=== PATIENT | male | born 1955 | race Caucasian/White ===

== ENCOUNTER 2023-11-21 08:24 | Inpatient (IN) | payer MEDICARE, OTHER ==
[2023-11-21 09:06] LABS: Basophils % (A) 0 %; Eosinophils # (A) 0.4 k/uL (0-0.7); Eosinophils % (A) 4 %; HCT 32.9 % (39.0-53.0); HGB 10.8 gm/dL (13.0-17.5); Lymphocytes % (A) 10 %; MCH 29.2 pg (25.0-35.0); MCHC 32.7 g/dL (31.0-37.0); MCV 89.3 fL (80.0-100.0); Mean Platelet Volume 8.9; Monocytes # (A) 0.6 k/uL (0-1.0); Monocytes % (A) 7 %; Neutrophils # (A) 7.4 k/uL (1.3-7.7); Neutrophils % (A) 77 %; Platelet Count 436 k/uL (150-450); RBC 3.68 m/uL (4.30-5.90); RDW 13.4 % (11.5-15.5); WBC 9.6 k/uL (3.8-10.6)
[2023-11-21 09:21] LABS: ALT 13 U/L (4-49); AST 25 U/L (17-59); African American GFR (CKD) 61 (>60 ml/min/1.73 sqM); Albumin 3.2 g/dL (3.5-5.0); Alkaline Phosphatase 67 U/L (38-126); Anion Gap 8 mmol/L; Blood Urea Nitrogen 44 mg/dL (9-20); Calcium 8.9 mg/dL (8.4-10.2); Carbon Dioxide 25 mmol/L (22-30); Chloride 107 mmol/L (98-107); Glucose 102 mg/dL (74-99); Non-African American GFR(CKD) 52 (>60 ml/min/1.73 sqM); Sodium 140 mmol/L (137-145); Total Bilirubin 0.4 mg/dL (0.2-1.3); Total Protein 6.4 g/dL (6.3-8.2)
[2023-11-21 09:24] LABS: Amorphous Sediment,Urine Moderate /hpf; Appearance,Urine Cloudy (Clear); Bacteria,Urine Many /hpf; Bilirubin,Urine Negative (Negative); Blood,Urine Large (Negative); Color,Urine Light Red; Glucose,Urine (UA) Negative (Negative); Ketones,Urine Negative (Negative); Leukocyte Esterase,Urine Moderate (Negative); Mucus,Urine Many /hpf; Nitrite,Urine Negative (Negative); Protein,Urine Trace (Negative); RBC,Urine >182 /hpf (0-5); Squamous Epithelial Cell,Urine 22 /hpf (0-4); Urobilinogen,Urine <2.0 mg/dL (<2.0); WBC,Urine >182 /hpf (0-5)
--- NOTE | 2023-11-21 10:12 | ED ---
General Adult HPI - General Chief complaint: Recheck/Abnormal Lab/Rx Stated complaint: transfer,kidney injury Time Seen by Provider: 11/21/23 08:25 Source: patient, EMS, RN notes reviewed, old records reviewed Mode of arrival: EMS Limitations: no limitations - History of Present Illness Initial comments: This is a 68-year-old male who presents to the emergency department from [facility]. Patient was at [facility] since yesterday. Patient's creatinine is 1.93 and they wanted sent him here to get a nephrology consult. They did not obtain a urine and did not do repeat labs after hydration. Patient arrived he had no complaints other than his chronic back pain. Patient denies any significant abdominal pain. Patient denied fever chills or cough or patient had any vomiting. Patient states he has been constipated. They did try to disimpact him at the other facility but stated that he did not still have a very big bowel movement. - Related Data Home Medications Medication Instructions Recorded Confirmed No Known Home Medications 11/21/23 11/21/23 Allergies Allergy/AdvReac Type Severity Reaction Status Date / Time No Known Allergies Allergy Verified 11/21/23 09:58 Review of Systems ROS Statement: Those systems with pertinent positive or pertinent negative responses have been documented in the HPI. ROS Other: All systems not noted in ROS Statement are negative. Past Medical History Additional Past Medical History / Comment(s): MS (LEG WEAKNESS, CANE, FALL RISK) diagnosed in January 2001 and treated with Tecfidera until March 2014. Right foot drop with foot brace CHRONIC BACK PAIN with degenerative scoliosis and spinal stenosis. History of Any Multi-Drug Resistant Organisms: None Reported Additional Past Surgical History / Comment(s): Laminectomy, decompression and fusion of L3-4 and L4-5 06/20/2014. Past Psychological History: No Psychological Hx Reported Smoking Status: Former smoker Past Alcohol Use History: Rare Past Drug Use History: None Reported - Past Family History Mother Family Medical History: AICD/Pacemaker, Mitral Valve Prolapse (MVP) Father Family Medical History: CVA/TIA, Diabetes Mellitus General Exam - General Exam Comments Initial Comments: GENERAL: Patient is well-developed and well-nourished. Patient is nontoxic and well- hydrated and is in no acute distress. ENT: Neck is soft and supple. No significant lymphadenopathy is noted. Oropharynx is clear. Moist mucous membranes. Neck has full range of motion without eliciting any pain. EYES: The sclera were anicteric and conjunctiva were pink and moist. Extraocular movements were intact and pupils were equal round and reactive to light. Eyelids were unremarkable. PULMONARY: Unlabored respirations. Good breath sounds bilaterally. No audible rales rhonchi or wheezing was noted. CARDIOVASCULAR: There is a regular rate and rhythm without any murmurs gallops or rubs. ABDOMEN: Mild suprapubic tenderness SKIN: Skin is clear with no lesions or rashes and otherwise unremarkable. NEUROLOGIC: Patient is alert and oriented x3. Cranial nerves II through XII are grossly intact. Motor and sensory are also intact. Normal speech, volume and content. Symmetrical smile. MUSCULOSKELETAL: Normal extremities with adequate strength and full range of motion. LYMPHATICS: No significant lymphadenopathy is noted PSYCHIATRIC: Normal psychiatric evaluation. Limitations: no limitations Course Vital Signs 11/21/23 08:27 Temperature 98.1 F Pulse Rate 105 H Respiratory 18 Rate Blood Pressure 131/90 O2 Sat by Pulse 94 L Oximetry Medical Decision Making - Medical Decision Making Was pt. sent in by a medical professional or institution (, PA, FAMILY PROGRAM SPECIALIST, urgent care, hospital, or skilled nursing...) When possible be specific @ -Patient was sent to us from [facility] Did you speak to anyone other than the patient for history (EMS, parent, family, police, friend...)? What history was obtained from this source @ -ER physician called prior to transfer and updated on the patient's condition. EMS also gave us the report on the patient's condition and route Did you review nursing and triage notes (agree or disagree)? Why? @ -I reviewed and agree with nursing and triage notes Were old charts reviewed (outside hosp., previous admission, EMS record, old EKG, old radiological studies, urgent care reports/EKG's, skilled nursing records)? Report findings @ -I reviewed the lab work from [facility] showed a creatinine 1.93 I also reviewed the chart and the emergency department and the CAT scans that they sent which showed fecal stasis and no other acute abnormality on the CT Differential Diagnosis (chest pain, altered mental status, abdominal pain women, abdominal pain men, vaginal bleeding, weakness, fever, dyspnea, syncope, headache, dizziness, GI bleed, back pain, seizure, CVA, palpatations, mental health, musculoskeletal)? @ -Not applicable EKG interpreted by me (3pts min.). @ -As above X-rays interpreted by me (1pt min.). @ -None done CT interpreted by me (1pt min.). @ -None done U/S interpreted by me (1pt. min.). @ -None done What testing was considered but not performed or refused? (CT, X-rays, U/S, labs)? Why? @ -None What meds were considered but not given or refused? Why? @ -None Did you discuss the management of the patient with other professionals (professionals i.e. DrErin, PA, FAMILY PROGRAM SPECIALIST, lab, RT, psych nurse, social services analyst, credit administration manager, teacher, first aid officer, caser in)? Give summary @ -I spoke with Dr. Justice and he agreed to admit the patient Was smoking cessation discussed for >3mins.? @ -No Was critical care preformed (if so, how long)? @ -No Were there social determinants of health that impacted care today? How? (Homelessness, low income, unemployed, alcoholism, drug addiction, transportation, low edu. Level, literacy, decrease access to med. care, custodial, rehab)? @ -No Was there de-escalation of care discussed even if they declined (Discuss DNR or withdrawal of care, Hospice)? DNR status @ -No What co-morbidities impacted this encounter? (DM, HTN, Smoking, COPD, CAD, Cancer, CVA, ARF, Chemo, Hep., AIDS, mental health diagnosis, sleep apnea, morbid obesity)? @ -None Was patient admitted / discharged? Hospital course, mention meds given and route, prescriptions, significant lab abnormalities, going to OR and other pertinent info. @ -Patient had repeat lab work here and it showed improved creatinine. Patient also look like he had an infectious Wrist to the patient on Rocephin I gave him 2 g in the emergency department. I also gave him a fluid bolus. Undiagnosed new problem with uncertain prognosis? @ -No Drug Therapy requiring intensive monitoring for toxicity (Heparin, Nitro, Insulin, Cardizem)? @ -No Were any procedures done? @ -No Diagnosis/symptom? @ -Renal insufficiency Acute, or Chronic, or Acute on Chronic? @ -Acute Uncomplicated (without systemic symptoms) or Complicated (systemic symptoms)? @ -Complicated Side effects of treatment? @ -No Exacerbation, Progression, or Severe Exacerbation? @ -No Poses a threat to life or bodily function? How? (Chest pain, [place], [place], pneumonia, PE, COPD, DKA, ARF, appy, cholecystitis, CVA, Diverticulitis, Homicidal, Suicidal, threat to staff... and all critical care pts) @ -No Diagnosis/symptom? @ -Urinary tract infection Acute, or Chronic, or Acute on Chronic? @ -Acute Uncomplicated (without systemic symptoms) or Complicated (systemic symptoms)? @ -Complicated Side effects of treatment? @ -None Exacerbation, Progression, or Severe Exacerbation] @ -No Poses a threat to life or bodily function? @ -Yes this can lead to sepsis and endorgan dysfunction Diagnosis/symptom? @ -Dehydration Acute, or Chronic, or Acute on Chronic? @ -Acute Uncomplicated (without systemic symptoms) or Complicated (systemic symptoms)? @ -Complicated Side effects of treatment? @ -None Exacerbation, Progression, or Severe Exacerbation] @ -No Poses a threat to life or bodily function? @ -No - Lab Data Result diagrams: 11/21/23 08:55 11/21/23 08:55 Lab Results 11/21/23 11/21/23 11/21/23 Range/Units 08:55 08:55 08:55 WBC 9.6 (3.8-10.6) k/uL RBC 3.68 L (4.30-5.90) m/uL Hgb 10.8 L (13.0-17.5) gm/dL Hct 32.9 L (39.0-53.0) % MCV 89.3 (80.0-100.0) fL MCH 29.2 (25.0-35.0) pg MCHC 32.7 (31.0-37.0) g/dL RDW 13.4 (11.5-15.5) % Plt Count 436 (150-450) k/uL MPV 8.9 Neutrophils % 77 % Lymphocytes % 10 % Monocytes % 7 % Eosinophils % 4 % Basophils % 0 % Neutrophils # 7.4 (1.3-7.7) k/uL Lymphocytes # 1.0 (1.0-4.8) k/uL Monocytes # 0.6 (0-1.0) k/uL Eosinophils # 0.4 (0-0.7) k/uL Basophils # 0.0 (0-0.2) k/uL Sodium 140 (137-145) mmol/L Potassium 4.0 (3.5-5.1) mmol/L Chloride 107 (98-107) mmol/L Carbon Dioxide 25 (22-30) mmol/L Anion Gap 8 mmol/L BUN 44 H (9-20) mg/dL Creatinine 1.36 H (0.66-1.25) mg/dL Est GFR (CKD-EPI)AfAm 61 (>60 ml/min/1.73 sqM) Est GFR (CKD-EPI)NonAf 52 (>60 ml/min/1.73 sqM) Glucose 102 H (74-99) mg/dL Calcium 8.9 (8.4-10.2) mg/dL Total Bilirubin 0.4 (0.2-1.3) mg/dL AST 25 (17-59) U/L ALT 13 (4-49) U/L Alkaline Phosphatase 67 (38-126) U/L Total Protein 6.4 (6.3-8.2) g/dL Albumin 3.2 L (3.5-5.0) g/dL Urine Color Light Red Urine Appearance Cloudy (Clear) Urine pH 5.0 (5.0-8.0) Ur Specific [place]ol[place] 1.010 (1.001-1.035) Urine Protein Trace H (Negative) Urine Glucose (UA) Negative (Negative) Urine Ketones Negative (Negative) Urine Blood Large H (Negative) Urine Nitrite Negative (Negative) Urine Bilirubin Negative (Negative) Urine Urobilinogen <2.0 (<2.0) mg/dL Ur Leukocyte Esterase Moderate H (Negative) Urine RBC >182 H (0-5) /hpf Urine WBC >182 H (0-5) /hpf Ur Squamous Epith Cells 22 H (0-4) /hpf Amorphous Sediment Moderate H (None) /hpf Urine Bacteria Many H (None) /hpf Urine Mucus Many H (None) /hpf Disposition Clinical Impression: Urinary tract infection, Dehydration, Renal insufficiency Disposition: ADMITTED IP TO THIS HOSP Referrals: Kang Santacruz MD [Primary Care Provider] - 1-2 days Time of Disposition: 10:11
[2023-11-21] MEDS: cefTRIAXone IN SWFI 1,000 MG/10 ML SYRINGE IVP STA (10:23)
[2023-11-21] MEDS: SODIUM CHLORIDE 0.9% 1,000 ML IV ONE ×2 (10:23→12:44)
--- NOTE | 2023-11-21 11:27 | XR ---
EXAMINATION TYPE: XR KUB DATE OF EXAM: 11/21/2023 COMPARISON: 11/20/2019 HISTORY: Abdominal TECHNIQUE: One view abdominal series FINDINGS: Diffuse osteopenia with severe arthropathy of the left postsurgical changes lower lumbar spine. Scoli osis and multilevel degenerative disc disease. Solidly elevated diaphragm. Dilated bowel loops in the abdomen. Contrast within the bladder. Suspect the catheter represents a Odell catheter versus rectal catheter. IMPRESSION: 1. Dilated bowel loops. Could be on the basis of ileus or partial distal colonic obstruction. Correla te for fecal impaction.
[2023-11-21] MEDS ORDERED: LACTULOSE 20 GM/30 ML CUP PO PRN (12:20)
[2023-11-21] MEDS ORDERED: NALOXONE 0.4 MG/ML 1 ML VIAL IV PRN (12:20)
[2023-11-21] MEDS ORDERED: MELATONIN 3 MG TABLET PO PRN (12:20)
[2023-11-21] MEDS ORDERED: ONDANSETRON 4 MG/2 ML VIAL IVP PRN (12:20)
[2023-11-21] MEDS ORDERED: CALCIUM CARBONATE 500 MG CHEWABLE PO PRN (12:20)
--- NOTE | 2023-11-21 12:21 | P.HPIM ---
History of Present Illness H&P Date: 11/21/23 Chief Complaint: Abnormal creatinine This is a 68-year-old patient, follows with Livier Villa NP.. Chronic stable medical conditions include MS causing leg weakness. Diagnosed in 2000. And treated withTecfidera until March 2014. Right foot drop with foot brace. Chronic low back pain with spinal stenosis. Has had Pretty previous lumbar laminectomy and decompression. Patient presented to the ER here from [facility]. Patient was [facility] where he was treated for initially a fall from standing and he fell sideways on the right hip. No fracture. He was also found to have a UTI was given ceftriaxone. During workup was found to have a creatinine of 1.91. CT scan showed a distended bladder. Odell catheter was placed. Found of significant fecal retention. Patient had declined enema. Also found to have enlarged prostate. Patient does complain of decreased urine flow. He tries to use a wheelchair most of the times. Appetite is good. No fever no chills. Normally has 2-3 bowel movements a week. Patient was sent down here for further workup by nephrology. Denies any urinary symptoms. Review of systems: GEN.: Tired EYES: None HEENT: None NECK: None RESPIRATORY: None CARDIOVASCULAR: None GASTROINTESTINAL: None GENITOURINARY: As above MUSCULOSKELETAL: As above LYMPHATICS: None HEMATOLOGICAL: None PSYCHIATRY: None NEUROLOGICAL: [Does use the help of a wheelchair e Social history: Lives alone. Was a smoker 2 packs/week and stopped in April 2011. Denies alcohol. Used to work in office setting. Physical examination: VITAL SIGNS: 98.1, 105, 18, 131/90, 94% room air GENERAL: BMI 26.5, reclining in bed not in distress. EYES: Pupils equal. Conjunctiva leslie l. HEENT: External appearance of nose and ears normal, oral cavity grossly normal. NECK: JVD not raised; masses not palpable. HEART: First and second heart sounds are normal; no edema. LUNGS: Respiratory rate normal; clear to auscultation. ABDOMEN: Soft, nontender, liver spleen not palpable, no masses palpable. Odell catheter PSYCH: Alert and oriented x3; mood and affect leslie l. MUSCULOSKELETAL:No Clubbing/cyanosis;muscles-grossly intact. Right foot brace- dropfoot NEUROLOGICAL: Cranial nerves grossly intact; no facial asymmetry, power and sensation grossly intact. LYMPHATICS: No lymph nodes palpable in the axilla and neck INVESTIGATIONS, reviewed in the clinical context: November 21, 2023: White count 9.6 hemoglobin 10.8 platelets 436 potassium 4 BUN 44 creatinine 1.36 UA: Trace protein large blood moderate leukoesterase WBC more than 182 squamous epithelial cells 22 KUB: Dilated bowel loops. Probable fecal impaction Assessment plan: -Severe obstipation from fecal retention. Causing some bowel distention. Patient normally goes to has a bowel movement 2-3 times a week. That explains some of his abdominal discomfort. Mag citrate and soapsuds enema ordered. Consult surgery. -Acute kidney injury, likely obstructive from distended bladder likely from component of prostatomegaly and fecal retention. Odell catheter was placed at the other hospital. Creatinine has come down to from 1.9-1.3 Rule out chronic component. Renal ultrasound -Multiple sclerosis. Patient has chronic leg weakness. Has diagnosed in January 2001. Treated withTecfidera until March 2014. Right foot with brace. -Chronic lower back pain/lumbar region. Has had prior decompression laminectomy. -BPH, as seen on CT scan also patient has BPH symptoms. Start Flomax 0.4 mg nightly. DC trial Odell tomorrow after patient is also had bowel movement. Care was discussed with the patient. Questions answered Past Medical History Additional Past Medical History / Comment(s): MS (LEG WEAKNESS, CANE, FALL RISK) diagnosed in January 2001 and treated with Tecfidera until March 2014. Right foot drop with foot brace CHRONIC BACK PAIN with degenerative scoliosis and spinal stenosis. History of Any Multi-Drug Resistant Organisms: None Reported Additional Past Surgical History / Comment(s): Laminectomy, decompression and fusion of L3-4 and L4-5 06/20/2014. Past Psychological History: No Psychological Hx Reported Smoking Status: Former smoker Past Alcohol Use History: Rare Past Drug Use History: None Reported - Past Family History Mother Family Medical History: AICD/Pacemaker, Mitral Valve Prolapse (MVP) Father Family Medical History: CVA/TIA, Diabetes Mellitus Medications and Allergies Home Medications Medication Instructions Recorded Confirmed Type No Known Home Medications 11/21/23 11/21/23 History Allergies Allergy/AdvReac Type Severity Reaction Status Date / Time No Known Allergies Allergy Verified 11/21/23 09:58 Physical Exam Vitals: Vital Signs Temp Pulse Resp BP Pulse Ox 11/21/23 10:31 80 16 122/86 93 L 11/21/23 08:27 98.1 F 105 H 18 131/90 94 L Intake and Output 11/20/23 11/21/23 11/21/23 22:59 06:59 14:59 Output Total 250 Balance -250 Output: Urine 250 Other: Voiding Method Indwelling Catheter Weight 86.183 kg Results CBC & Chem 7: 11/21/23 08:55 11/21/23 08:55 Labs: Abnormal Lab Results - Last 24 Hours (Table) 11/21/23 11/21/23 11/21/23 Range/Units 08:55 08:55 08:55 RBC 3.68 L (4.30-5.90) m/uL Hgb 10.8 L (13.0-17.5) gm/dL Hct 32.9 L (39.0-53.0) % BUN 44 H (9-20) mg/dL Creatinine 1.36 H (0.66-1.25) mg/dL Glucose 102 H (74-99) mg/dL Albumin 3.2 L (3.5-5.0) g/dL Urine Protein Trace H (Negative) Urine Blood Large H (Negative) Ur Leukocyte Esterase Moderate H (Negative) Urine RBC >182 H (0-5) /hpf Urine WBC >182 H (0-5) /hpf Ur Squamous Epith Cells 22 H (0-4) /hpf Amorphous Sediment Moderate H (None) /hpf Urine Bacteria Many H (None) /hpf Urine Mucus Many H (None) /hpf
[2023-11-21] MEDS: ENOXAPARIN 40 MG/0.4 ML SYRINGE SQ SCH (12:45)
--- NOTE | 2023-11-21 15:32 | P.GSCN ---
History of Present Illness Consult date: 11/21/23 History of present illness: CHIEF COMPLAINT: Acute kidney injury HISTORY OF PRESENT ILLNESS: This is a 68-year-old male who is a transfer from [facility]. Apparently had an elevated creatinine of 1.93 and was sent here to be evaluated by nephrology. Patient also has a ported issues with constipation. He did not have a bowel movement for 3 to 4 days. He was reporting minimal flatus. Denies any nausea or vomiting. Complains of soreness across the lower abdomen. Denies any prior history of constipation. Denies being on any pain medication. He does have a history of MS and limited mobility. Last colonoscopy was several years ago and he reports it is negative. KUB x-ray reported dilated bowel loops. Could be on the basis of ileus or partial distal colonic obstruction. Correlate for fecal impaction. Medicine service has ordered a soapsuds enema and citrate of mag. Patient reports that he thinks he is now having bowel movements. Patient denies any prior abdominal surgeries. PAST MEDICAL HISTORY: See list. PAST SURGICAL HISTORY: See list. MEDICATIONS: See list. ALLERGIES: See list. SOCIAL HISTORY: No illicit drug use. REVIEW OF SYSTEMS: CONSTITUTIONAL: Denies fever or chills. HEENT: Denies blurred vision, vision changes, or eye pain. Denies hemoptysis ENDOCRINE: Denies heat or cold intolerance. CARDIOVASCULAR: Denies chest pain or pressure. RESPIRATORY: No shortness of breath. GASTROINTESTINAL: Please refer to HPI otherwise unremarkable NEURO: Denies history of seizures. PSYCH: No depression or suicidal ideation HEMATOLOGIC: Denies bleeding disorders. LYMPHATIC: The patient denies any lumps and bumps around the neck. GENITOURINARY: Denies any blood in urine or increased urinary frequency. MUSCULOSKELETAL: Denies myalgias. Denies joint swelling. Denies decreased range of motion beyond patients baseline. SKIN: Denies pruitis. Denies rash. PHYSICAL EXAM: VITAL SIGNS: Reviewed GENERAL: Well-developed in no acute distress. HEENT: No sclera icterus. Extraocular movements grossly intact. Moist buccal mucosa. Head is atraumatic, normocephalic. Hears conversational speech. No nasal drainage. NECK: Supple without lymphadenopathy. CHEST: Non-labored respirations and equal bilateral excursions. CARDIOVASCULAR: Palpable 2+ radial pulses. ABDOMEN: Soft. Mildly distended. Mild tenderness with palpation lower abdomen MUSCULOSKELETAL: No clubbing or cyanosis. NEUROLOGIC: No focal or lateralizing signs. Cranial nerves II through XII grossly intact. PSYCH: Appropriate affect. Alert and oriented to person, place and time. SKIN: Well perfused. Good skin turgor. LABORATORY DATA: WBC 9.6 Hgb 10.8 platelets 436 Sodium is 140 potassium 4.0 creatinine 1.36 Lactic acid 1.1 IMAGING: KUB x-ray dilated bowel loops. Could be on the basis of ileus or partial distal colonic obstruction. Correlate for fecal impaction. ASSESSMENT: 1. Constipation 2. Possible ileus 3. Acute kidney injury 4. History of MS and limited mobility PLAN: -Agree with soapsuds enema and citrate of mag -Continue to monitor -Downgrade diet to full liquids until patient having bowel movements -Continue IV fluids Physician Registered Respiratory Therapist note has been reviewed by physician. Signing provider agrees with the documented findings, assessment, and plan of care. Please see additional documentation below. CHIEF COMPLAINT: Chronic constipation HISTORY OF PRESENT ILLNESS: The patient is a 68-year-old male with multiple sclerosis, degenerative spine disease who was transferred from outside facility for acute kidney injury. Patient had outside CT film demonstrates fecal impaction. Since transferred to this hospital, patient is documented to have multiple bowel movements. He denies any abdominal pain at the time of my assessment. General surgery is consulted for chronic constipation. Patient reports personal history of usual daily bowel movements which has changed in the last week. PAST MEDICAL HISTORY: See list and reviewed PAST SURGICAL HISTORY: See list and reviewed MEDICATIONS: See list and reviewed ALLERGIES: See list and reviewed SOCIAL HISTORY: See list and reviewed FAMILY HISTORY: See list and reviewed REVIEW OF ORGAN SYSTEMS: CONSTITUTIONAL: No fevers or chills. No recent weight loss. EYES: Denies any trouble with vision. No glasses. HEENT: No difficulties with hearing. No nosebleeds. No difficulty swallowing. RESPIRATORY: Denies pneumonia. Denies any troubles with breathing or dyspnea on exertion. CARDIOVASCULAR: Denies any chest pain, palpitations, or recent heart attacks. GASTROINTESTINAL: Denies fatty food intolerance. Denies change in bowel habits and gas bloat. GENITOURINARY: New acute kidney injury. NEUROLOGICAL: Has multiple sclerosis with right foot drop. MUSCULOSKELETAL: Has spinal stenosis. SKIN: No current skin cancer. No rash. PSYCHIATRIC: Denies current depression or suicidal thoughts. ENDOCRINE: Denies current thyroid disorders. Denies any blood sugar glucose intolerance. HEME/LYMPHATIC: Denies any lumps and bumps around the neck. No recent deep venous thrombosis. ALLERGY/IMMUNOLOGY: No immunoglobulin therapy. No immune deficiencies. BREAST: Denies current breast lumps, pain or nipple discharge. PHYSICAL EXAM: VITALS: Reviewed CONSTITUTIONAL: Well developed and in no acute distress. EYES: Conjuctivae without sclera icterus. Extraocular movements grossly intact. HEAD, EARS, NOSE, THROAT: Moist buccal mucosa. Head is atraumatic, normocephalic. Hears conversational speech. No nasal drainage. NECK: Supple. No JV distention. No thyroidomegaly. RESPIRATORY: Non-labored respirations and equal bilateral excursions. No gross wheezes. CARDIOVASCULAR: Palpable 2+ radial pulses. ABDOMEN: No peritonitis. No moderate distention. LYMPH: No neck lymphadenopathy. MUSCULOSKELETAL: No clubbing cyanosis or edema SKIN: Warm and well perfused with good skin turgor. NEUROLOGIC: Cranial nerves II through XII grossly intact. No focal or lateralizing signs. PSYCH: Appropriate affect. Alert and oriented to person, place and time. Displays appropriate insight. CLINCAL LABS: Reviewed. Hemoglobin 10.8, anemia. Creatinine elevated 1.36. IMAGING: Independently reviewed. Outside CT of the abdomen pelvis independently reviewed demonstrates localized fecal bolus of the rectum. This is my independent interpretation. Abdominal x-ray 11/21/2023 demonstrates no residual stool. No bowel obstruction. This is my independent interpretation. RADIOLOGY: Report reviewed abdominal x-ray partial dilated small bowel. ASSESSMENT: 1. Fecal impaction per outside CT scan 2. Anemia 3. Acute kidney injury 4. Multiple sclerosis PLAN: 1. Recommend bowel regimen to include lactulose and milk of magnesia 2. No acute surgical invention at this time ADVANCE DIRECTIVE: CODE STATUS in chart Thank you for this kind consultation. Past Medical History Additional Past Medical History / Comment(s): MS (LEG WEAKNESS, CANE, FALL RISK) diagnosed in January 2001 and treated with Tecfidera until March 2014. Right foot drop with foot brace CHRONIC BACK PAIN with degenerative scoliosis and spinal stenosis. History of Any Multi-Drug Resistant Organisms: None Reported Additional Past Surgical History / Comment(s): Laminectomy, decompression and fusion of L3-4 and L4-5 06/20/2014. Past Psychological History: No Psychological Hx Reported Smoking Status: Former smoker Past Alcohol Use History: Rare Past Drug Use History: None Reported - Past Family History Mother Family Medical History: AICD/Pacemaker, Mitral Valve Prolapse (MVP) Father Family Medical History: CVA/TIA, Diabetes Mellitus Medications and Allergies Home Medications Medication Instructions Recorded Confirmed Type No Known Home Medications 11/21/23 11/21/23 History Allergies Allergy/AdvReac Type Severity Reaction Status Date / Time No Known Allergies Allergy Verified 11/21/23 09:58 Surgical - Exam Vital Signs Temp Pulse Resp BP Pulse Ox 98.1 F 105 H 18 131/90 94 L 11/21/23 08:27 11/21/23 08:27 11/21/23 08:27 11/21/23 08:27 11/21/23 08:27 Results - Labs 11/21/23 08:55 11/22/23 05:48 Abnormal Lab Results - Last 24 Hours (Table) 11/21/23 11/21/23 11/21/23 Range/Units 08:55 08:55 08:55 RBC 3.68 L (4.30-5.90) m/uL Hgb 10.8 L (13.0-17.5) gm/dL Hct 32.9 L (39.0-53.0) % BUN 44 H (9-20) mg/dL Creatinine 1.36 H (0.66-1.25) mg/dL Glucose 102 H (74-99) mg/dL Albumin 3.2 L (3.5-5.0) g/dL Urine Protein Trace H (Negative) Urine Blood Large H (Negative) Ur Leukocyte Esterase Moderate H (Negative) Urine RBC >182 H (0-5) /hpf Urine WBC >182 H (0-5) /hpf Ur Squamous Epith Cells 22 H (0-4) /hpf Amorphous Sediment Moderate H (None) /hpf Urine Bacteria Many H (None) /hpf Urine Mucus Many H (None) /hpf Diabetes panel 11/21/23 Range/Units 08:55 Sodium 140 (137-145) mmol/L Potassium 4.0 (3.5-5.1) mmol/L Chloride 107 (98-107) mmol/L Carbon Dioxide 25 (22-30) mmol/L BUN 44 H (9-20) mg/dL Creatinine 1.36 H (0.66-1.25) mg/dL Glucose 102 H (74-99) mg/dL Calcium 8.9 (8.4-10.2) mg/dL AST 25 (17-59) U/L ALT 13 (4-49) U/L Alkaline Phosphatase 67 (38-126) U/L Total Protein 6.4 (6.3-8.2) g/dL Albumin 3.2 L (3.5-5.0) g/dL Calcium panel 11/21/23 Range/Units 08:55 Calcium 8.9 (8.4-10.2) mg/dL Albumin 3.2 L (3.5-5.0) g/dL Pituitary panel 11/21/23 Range/Units 08:55 Sodium 140 (137-145) mmol/L Potassium 4.0 (3.5-5.1) mmol/L Chloride 107 (98-107) mmol/L Carbon Dioxide 25 (22-30) mmol/L BUN 44 H (9-20) mg/dL Creatinine 1.36 H (0.66-1.25) mg/dL Glucose 102 H (74-99) mg/dL Calcium 8.9 (8.4-10.2) mg/dL Adrenal panel 11/21/23 Range/Units 08:55 Sodium 140 (137-145) mmol/L Potassium 4.0 (3.5-5.1) mmol/L Chloride 107 (98-107) mmol/L Carbon Dioxide 25 (22-30) mmol/L BUN 44 H (9-20) mg/dL Creatinine 1.36 H (0.66-1.25) mg/dL Glucose 102 H (74-99) mg/dL Calcium 8.9 (8.4-10.2) mg/dL Total Bilirubin 0.4 (0.2-1.3) mg/dL AST 25 (17-59) U/L ALT 13 (4-49) U/L Alkaline Phosphatase 67 (38-126) U/L Total Protein 6.4 (6.3-8.2) g/dL Albumin 3.2 L (3.5-5.0) g/dL
--- NOTE | 2023-11-21 15:41 | XR ---
EXAM TYPE: LUMBAR SPINE X RAY SERIES COMPARISON: 06/20/2014 HISTORY: Pain TECHNIQUE: 3 views are submitted. FINDINGS: The curvature of the spine with severe multilevel degenerative disc disease and diffuse osteopenia. T here is a deformity involving the right 10th rib likely the basis remote trauma. Postsurgical change levels L3-L5 similar in appearance. Orthopedic screw at L3 is somewhat along the course of the disc space for upper vertebral segment. This is unchanged. Severe left hip arthropathy and areas of sclerosis involving the left pelvic bone. Catheter overlying the pelvis likely related t o Odell catheter or rectal tube. IMPRESSION: 1. Postoperative change with multilevel additional severe degenerative disc disease extending from le vels T12-L3. 2. Severe left hip arthropathy. There is areas of sclerosis involving the left pelvic bone partially included in the [id number] and indeterminate etiology.
[2023-11-21] MEDS: MAGNESIUM CITRATE 296 ML BOTTLE PO ONE (16:19)
--- NOTE | 2023-11-21 16:39 | US ---
EXAMINATION TYPE: US kidneys/renal and bladder DATE OF EXAM: 11/21/2023 COMPARISON: 11/20/2023 CLINICAL INDICATION: Male, 68 years old with history of Evaluate for CKD; Abnormal labs. Bladder fol ey. Macroscopic hematuria. EXAM MEASUREMENTS: Right Kidney: 10.4 x 4.4 x 5.1 cm Left Kidney: 9.3 x 4.8 x 5.5 cm Right Kidney: Medial inferior cortical anechoic lesion - 1.2 x 1.4 x 0.9 cm Left Kidney: Limited evaluation due to patient position Bladder: Distended. Richmond seen. Area seen in left bladder, tissue vs clot vs other etiology = 5.1 x 4.0 x 2.3 cm Bilateral Jets not seen due to richmond There is no evidence for hydronephrosis at this point in time. No nephrolithiasis is seen. No ana s are identified. The urinary bladder is anechoic. Bilateral ureteral jets are seen. IMPRESSION: 1. Richmond catheter in place with irregular shaped tissue extending from the bladder base. Unclear if this is blood products or irregular pedunculated mass. Correlate with urinalysis. Consider cystoscopy for complete evaluation.. 2. Right renal simple appearing cyst.
[2023-11-21] MEDS: TAMSULOSIN 0.4 MG CAP.ER.24H PO SCH (17:40)
[2023-11-22 06:38] LABS: African American GFR (CKD) >90 (>60 ml/min/1.73 sqM); Anion Gap 10 mmol/L; Blood Urea Nitrogen 24 mg/dL (9-20); Calcium 8.7 mg/dL (8.4-10.2); Carbon Dioxide 23 mmol/L (22-30); Chloride 110 mmol/L (98-107); Glucose 94 mg/dL (74-99); Non-African American GFR(CKD) 79 (>60 ml/min/1.73 sqM); Potassium 3.8 mmol/L (3.5-5.1); Sodium 143 mmol/L (137-145)
--- NOTE | 2023-11-22 09:46 | P.CNOR ---
History of Present Illness - [facility] Consult date: 11/22/23 Requesting physician: Cirilo Justice Consult reason: low back pain History of present illness: History of Presenting Illness Patient is a Pleasant 68-year-old male who Was transferred to our ER from [facility]. Patient was being treated at [facility] for a fall from standing. He states he lost his balance and fell sideways onto his right hip. No fractures were demonstrated. Patient did have a medical workup and was found to have a UTI and significant fecal retention. Patient was transferred to our facility for a nephrology consult. Patient does have complaint of chronic back pain, our services have been consulted for evaluation. Patient does have a previous orthopedic history of a [id number] and fusion. Patient is unable to remember where or who performed his procedure. He states that he lives alone in a single-wide trailer. He states he normally uses a wheelchair for his mobility. Patient denies any perineal numbness or tingling and incontinence of bowel or bladder. Patient is currently denying any treatment for his low back. He states that this is something that he has been dealing with and does not feel he needs treatment at this time. He declines any consult to pain management. Patient do es agree to follow up outpatient as needed with our service. Review of Systems Pertinent positives and negatives as discussed in HPI, a complete review of systems was performed and all other systems are negative. Physical Examination Physical exam was denied by patient. Patient denied needing any treatment for his lumbar spine. Assessment and Plan X-ray of the lumbar spine taken on 11/21/2023 demonstrates postoperative change with multilevel additional severe degenerative disc disease and diffuse osteopenia extending from the level T12-L3. Severe left hip arthropathy. There is areas of sclerosis involving the left pelvic bone. Degenerative scoliosis Lumbar spondylosis Previous L3-S1 decompression and fusion Diffuse Osteopenia Left hip Arthropathy At this time we do not recommend any emergent/urgent orthopedic surgical intervention. Patient may follow-up with Dr. Merino office for further evaluation as needed. Orthopedics is signing off at this time. Please do not hesitate to contact us for any further questions. 2. Appreciate medical management 3. Pain management - Continue with conservative treatment, such as anti- inflammatory, ice and heat therapy, and Tylenol. 4. PT/OT - Recommend daily PT OT, patient may benefit from subacute rehab. 5. Appreciate consult I reviewed and discussed this case with my attending Dr. Merino, whom has reviewed this chart and films and is in agreement with assessment and plan of care as outlined above. I have personally seen and examined the patient, performed the documentation and the assessment and plan as written. Number of minutes spent on the visit: 20m. Past Medical History Additional Past Medical History / Comment(s): MS (LEG WEAKNESS, CANE, FALL RISK) diagnosed in January 2001 and treated with Tecfidera until March 2014. Right foot drop with foot brace CHRONIC BACK PAIN with degenerative scoliosis and spinal stenosis. History of Any Multi-Drug Resistant Organisms: None Reported Additional Past Surgical History / Comment(s): Laminectomy, decompression and fusion of L3-4 and L4-5 06/20/2014. Past Psychological History: No Psychological Hx Reported Smoking Status: Former smoker Past Alcohol Use History: Rare Past Drug Use History: None Reported - Past Family History Mother Family Medical History: AICD/Pacemaker, Mitral Valve Prolapse (MVP) Father Family Medical History: CVA/TIA, Diabetes Mellitus Medications and Allergies Home Medications Medication Instructions Recorded Confirmed Type No Known Home Medications 11/21/23 11/21/23 History Allergies Allergy/AdvReac Type Severity Reaction Status Date / Time No Known Allergies Allergy Verified 11/21/23 09:58 Results - Labs Labs: Abnormal Lab Results - Last 24 Hours (Table) 11/21/23 11/21/23 11/21/23 Range/Units 08:55 08:55 08:55 RBC 3.68 L (4.30-5.90) m/uL Hgb 10.8 L (13.0-17.5) gm/dL Hct 32.9 L (39.0-53.0) % Chloride (98-107) mmol/L BUN 44 H (9-20) mg/dL Creatinine 1.36 H (0.66-1.25) mg/dL Glucose 102 H (74-99) mg/dL Albumin 3.2 L (3.5-5.0) g/dL Urine Protein Trace H (Negative) Urine Blood Large H (Negative) Ur Leukocyte Esterase Moderate H (Negative) Urine RBC >182 H (0-5) /hpf Urine WBC >182 H (0-5) /hpf Ur Squamous Epith Cells 22 H (0-4) /hpf Amorphous Sediment Moderate H (None) /hpf Urine Bacteria Many H (None) /hpf Urine Mucus Many H (None) /hpf 11/22/23 Range/Units 05:48 RBC (4.30-5.90) m/uL Hgb (13.0-17.5) gm/dL Hct (39.0-53.0) % Chloride 110 H (98-107) mmol/L BUN 24 H (9-20) mg/dL Creatinine (0.66-1.25) mg/dL Glucose (74-99) mg/dL Albumin (3.5-5.0) g/dL Urine Protein (Negative) Urine Blood (Negative) Ur Leukocyte Esterase (Negative) Urine RBC (0-5) /hpf Urine WBC (0-5) /hpf Ur Squamous Epith Cells (0-4) /hpf Amorphous Sediment (None) /hpf Urine Bacteria (None) /hpf Urine Mucus (None) /hpf H & H 11/21/23 Range/Units 08:55 Hgb 10.8 L (13.0-17.5) gm/dL Hct 32.9 L (39.0-53.0) % Result Diagrams: 11/21/23 08:55 11/22/23 05:48
--- NOTE | 2023-11-22 10:15 | P.NPCON ---
History of Present Illness - Reason for Consult acute renal failure - History of Present Illness Reason for consultation: Acute kidney injury History of present illness: Patient is a 68-year-old male seen in renal consultation for acute kidney injury. Patient initially presented to [facility] due to fall. Patient states he fell near his bed and the next thing he knew he was down on the ground. He was brought to the hospital by the ambulance. Patient also admits to constipation and is being followed by surgery. He is currently on a full liquid diet and is tolerating it well. Creatinine upon admission at [facility] was 1.9 and is down to 0.97 today. He is currently receiving IV fluids. He denies nausea or vomiting. Hemodynamically stable. No fever or chills. Denies regular use of nonsteroidals. No history of diabetes. Denies history of coronary artery disease. Denies family history of renal disease. Vital signs are stable. General: No acute distress. HEENT: Head exam is unremarkable. LUNGS: No audible rhonchi or wheezes. HEART: Rate and Rhythm are regular. ABDOMEN: Mild generalized tenderness. EXTREMITITES: No edema. Past Medical History Additional Past Medical History / Comment(s): MS (LEG WEAKNESS, CANE, FALL RISK) diagnosed in January 2001 and treated with Tecfidera until March 2014. Right foot drop with foot brace CHRONIC BACK PAIN with degenerative scoliosis and spinal stenosis. History of Any Multi-Drug Resistant Organisms: None Reported Additional Past Surgical History / Comment(s): Laminectomy, decompression and fusion of L3-4 and L4-5 06/20/2014. Past Psychological History: No Psychological Hx Reported Smoking Status: Former smoker Past Alcohol Use History: Rare Past Drug Use History: None Reported - Past Family History Mother Family Medical History: AICD/Pacemaker, Mitral Valve Prolapse (MVP) Father Family Medical History: CVA/TIA, Diabetes Mellitus Medications and Allergies Home Medications Medication Instructions Recorded Confirmed Type No Known Home Medications 11/21/23 11/21/23 History Allergies Allergy/AdvReac Type Severity Reaction Status Date / Time No Known Allergies Allergy Verified 11/21/23 09:58 Physical Exam Vitals: Vital Signs Temp Pulse Pulse Resp BP BP Pulse Ox 11/22/23 08:00 97.9 F 97 20 143/78 94 L 11/22/23 02:00 98.5 F 99 20 128/74 92 L 11/21/23 21:26 22 11/21/23 19:51 97.9 F 90 20 132/73 90 L 11/21/23 15:48 97.4 F L 100 20 112/64 90 L 11/21/23 13:46 97.8 F 64 18 111/53 94 L 11/21/23 12:09 97.6 F 80 18 141/98 92 L 11/21/23 10:31 80 16 122/86 93 L Intake and Output 11/21/23 11/22/23 11/22/23 22:59 06:59 14:59 Output Total 900 200 Balance -900 -200 Output: Urine 900 200 Other: Voiding Method Indwelling Catheter # Bowel Movements 1 2 Results - Lab Results Most recent lab results Calcium 8.7 mg/dL (8.4-10.2) 11/22/23 05:48 11/21/23 08:55 11/22/23 05:48 Assessment and Plan Plan: Assessment: 1. Acute kidney injury secondary to vasomotor nephropathy from hypovolemia. Creatinine 1.9 upon initial presentation in [facility] and down to 0.97 today. UA with trace protein and suggestive of UTI. No hydronephrosis noted on kidney ultrasound. 2. Bladder mass noted on kidney ultrasound. Consider urology eval. 3. Constipation and possible ileus being followed by surgery. On for liquid diet. 4. History of MS. Plan: Maintain IV fluids. Encouraged oral intake. Avoid nephrotoxins. Continue to monitor renal function and urine output. Thank you for the consultation. I will continue to follow the patient with you during his hospital stay.
--- NOTE | 2023-11-22 12:39 | P.GSCN ---
History of Present Illness Consult date: 11/22/23 Reason for Consult: Urinary retention, possible bladder mass Requesting physician: Arie Machado History of present illness: The patient is a 68-year-old male who presented to [facility] yesterday with lower abdominal pain. He is a vague historian. He was diagnosed with a UTI. He reported constipation and was disimpacted. He left the hospital but returned with persistent symptoms. On that second visit, a CT scan of the abdomen and pelvis was obtained. This showed bilateral renal atrophy with symmetrical contrast excretion, bilateral renal lesions presumed to be cysts, and an enlarged prostate that extended intravesically. Apparently the bladder was distended despite a Odell catheter being in place, and the catheter was irrigated. Over 500 cc was drained and the patient's lower abdominal discomfort resolved. The patient was diagnosed with MS in 2000. He has chronic low back pain with spinal stenosis. He is a vague historian. He denies any prior history of urolithiasis, but is unsure whether or not he has ever been treated for a UTI. He states that he has never been told he had an enlarged prostate. He reports occasional fecal incontinence but is unable to state whether he experiences urinary incontinence. Review of Systems ROS unobtainable: due to mental status Past Medical History Additional Past Medical History / Comment(s): MS (LEG WEAKNESS, CANE, FALL RISK) diagnosed in January 2001 and treated with Tecfidera until March 2014. Right foot drop with foot brace CHRONIC BACK PAIN with degenerative scoliosis and spinal stenosis. History of Any Multi-Drug Resistant Organisms: None Reported Additional Past Surgical History / Comment(s): Laminectomy, decompression and fusion of L3-4 and L4-5 06/20/2014. Past Psychological History: No Psychological Hx Reported Smoking Status: Former smoker Past Alcohol Use History: Rare Past Drug Use History: None Reported - Past Family History Mother Family Medical History: AICD/Pacemaker, Mitral Valve Prolapse (MVP) Father Family Medical History: CVA/TIA, Diabetes Mellitus Medications and Allergies Home Medications Medication Instructions Recorded Confirmed Type No Known Home Medications 11/21/23 11/21/23 History Allergies Allergy/AdvReac Type Severity Reaction Status Date / Time No Known Allergies Allergy Verified 11/21/23 09:58 Surgical - Exam Vital Signs Temp Pulse Resp BP Pulse Ox 98.1 F 105 H 18 131/90 94 L 11/21/23 08:27 11/21/23 08:27 11/21/23 08:27 11/21/23 08:27 11/21/23 08:27 - General well developed, well nourished, no distress - Respiratory normal respiratory effort - Abdomen Abdomen: soft, tender (Mild lower abdominal tenderness), no masses, no guarding, no rigid, no rebound - Genitourinary normal penis with no external lesions, testicles non-tender - Rectum Rectum: normal sphincter tone, no masses, other (Prostate moderately enlarged with smooth) Results - Labs 11/21/23 08:55 11/22/23 05:48 Abnormal Lab Results - Last 24 Hours (Table) 11/22/23 Range/Units 05:48 Chloride 110 H (98-107) mmol/L BUN 24 H (9-20) mg/dL Diabetes panel 11/22/23 Range/Units 05:48 Sodium 143 (137-145) mmol/L Potassium 3.8 (3.5-5.1) mmol/L Chloride 110 H (98-107) mmol/L Carbon Dioxide 23 (22-30) mmol/L BUN 24 H (9-20) mg/dL Creatinine 0.97 (0.66-1.25) mg/dL Glucose 94 (74-99) mg/dL Calcium 8.7 (8.4-10.2) mg/dL Calcium panel 11/22/23 Range/Units 05:48 Calcium 8.7 (8.4-10.2) mg/dL Pituitary panel 11/22/23 Range/Units 05:48 Sodium 143 (137-145) mmol/L Potassium 3.8 (3.5-5.1) mmol/L Chloride 110 H (98-107) mmol/L Carbon Dioxide 23 (22-30) mmol/L BUN 24 H (9-20) mg/dL Creatinine 0.97 (0.66-1.25) mg/dL Glucose 94 (74-99) mg/dL Calcium 8.7 (8.4-10.2) mg/dL Adrenal panel 11/22/23 Range/Units 05:48 Sodium 143 (137-145) mmol/L Potassium 3.8 (3.5-5.1) mmol/L Chloride 110 H (98-107) mmol/L Carbon Dioxide 23 (22-30) mmol/L BUN 24 H (9-20) mg/dL Creatinine 0.97 (0.66-1.25) mg/dL Glucose 94 (74-99) mg/dL Calcium 8.7 (8.4-10.2) mg/dL - Imaging CT scan - abdomen: report reviewed US - kidney/bladder: report reviewed, image reviewed Assessment and Plan (1) Urinary tract infection Current Visit: Yes Status: Acute Code(s): N39.0 - URINARY TRACT INFECTION, SITE NOT SPECIFIED SNOMED Code(s): 46615998 (2) Retention of urine, unspecified Current Visit: Yes Status: Acute Code(s): R33.9 - RETENTION OF URINE, UNSPECIFIED SNOMED Code(s): 122008568 (3) Abnormal radiologic findings on diagnostic imaging of renal pelvis, ureter, or bladder Current Visit: Yes Status: Acute Code(s): R93.41 - ABN RADLGC FIND ON DX IMAGING RENAL PELV, URETER, OR BLDDR SNOMED Code(s): 467796301 Plan: The patient currently has a 12 [address] catheter in place. The urine draining is bloody with small clots. Review of the records from [facility] shows no mention of hydronephrosis prior to Odell catheter placement. There is no evidence of suprapubic distention. If the catheter becomes occluded, it should be exchanged for a 16 or 18 Maltese catheter. The patient received ceftriaxone yesterday. I would suggest he continue to be treated empirically for a UTI. Unfortunately, transfer records do not show the results of the urinalysis as the urinalysis was performed at the time of the first of 2 ER visits yesterday. The patient's urinary retention could be due to MS and/or BPH. I did explain to the patient that I suspect the bladder mass seen on imaging is due to intravesical extension of his BPH, but cystoscopy will be required to rule out intravesical pathology. He has indicated that it may be easier for him to follow-up with a urologist in [place], Dr. Salinas. Time with Patient: Greater than 30
[2023-11-22] MEDS: SODIUM CHLORIDE 0.9% 1,000 ML IV SCH (17:05)
--- NOTE | 2023-11-22 18:35 | P.PN ---
Subjective Progress Note Date: 11/22/23 68-year-old male who presented to [facility] yesterday with lower abdominal pain. He is a vague historian. He was diagnosed with a UTI. He reported constipation and was disimpacted. He left the hospital but returned with persistent symptoms. On that second visit, a CT scan of the abdomen and p nahun was obtained. This showed bilateral renal atrophy with symmetrical contrast excretion, bilateral renal lesions presumed to be cysts, and an enlarged prostate that extended intravesically. Apparently the bladder was distended despite a Odell catheter being in place, and the catheter was irrig ated. Over 500 cc was drained and the patient's lower abdominal discomfort resolved. The patient was diagnosed with MS in 2000. He has chronic low back pain with spinal stenosis. He is a vague historian. He denies any prior history of urolithiasis, but is unsure whether or not he has ever been treated for a UTI. He states that he has never been told he had an enlarged prostate. He reports occasional fecal incontinence but is unable to state whether he experiences urinary incontinence. Objective - Vital Signs Vital signs: Vital Signs Temp 98.4 F 11/22/23 12:33 Pulse 94 11/22/23 12:33 Resp 20 11/22/23 12:33 BP 133/87 11/22/23 12:33 Pulse Ox 94 L 11/22/23 08:00 FiO2 Intake & Output 11/21/23 11/22/23 11/22/23 18:59 06:59 18:59 Output Total 250 1100 560 Balance -250 -1100 -560 Weight 86.183 kg Output: Urine 250 1100 560 Other: Voiding Method Indwelling Catheter Indwelling Catheter Indwelling Catheter # Bowel Movements 2 2 1 - Exam GENERAL: BMI 26.5, reclining in bed not in distress. EYES: Pupils equal. Conjunctiva leslie l. HEENT: External appearance of nose and ears normal, oral cavity grossly normal. NECK: JVD not raised; masses not palpable. HEART: First and second heart sounds are normal; no edema. LUNGS: Respiratory rate normal; clear to auscultation. ABDOMEN: Soft, nontender, liver spleen not palpable, no masses palpable. Odell catheter PSYCH: Alert and oriented x3; mood and affect leslie l. MUSCULOSKELETAL:No Clubbing/cyanosis;muscles-grossly intact. Right foot brace- dropfoot NEUROLOGICAL: Cranial nerves grossly intact; no facial asymmetry, power and sensation grossly intact. LYMPHATICS: No lymph nodes palpable in the axilla and neck - Labs CBC & Chem 7: 11/21/23 08:55 11/22/23 05:48 Labs: Abnormal Lab Results - Last 24 Hours (Table) 11/22/23 Range/Units 05:48 Chloride 110 H (98-107) mmol/L BUN 24 H (9-20) mg/dL Assessment and Plan Assessment: 1. Severe obstipation from fecal retention. Causing some bowel distention. Patient normally goes to has a bowel movement 2-3 times a week. That explains some of his abdominal discomfort. Mag citrate and soapsuds enema ordered. Consult surgery. 2. Acute kidney injury, likely obstructive from distended bladder likely from component of prostatomegaly and fecal retention. Odell catheter was placed at the other hospital. Creatinine has come down to from 1.9-1.3 Rule out chronic component. Renal ultrasound 3. Multiple sclerosis. Patient has chronic leg weakness. Has diagnosed in ne 2000. Treated withTecfidera until March 2014. Right foot with brace. 4. Chronic lower back pain/lumbar region. Has had prior decompression laminectomy. 5. BPH, as seen on CT scan also patient has BPH symptoms. Start Flomax 0.4 mg nightly. DC trial Odell tomorrow after patient is also had bowel movement. DVT prophylaxis; SCDs/subcu Lovenox CODE STATUS; full code
[2023-11-23 09:29] LABS: BUN/Creat Ratio 13.11 Ratio (12.00-20.00); Blood Urea Nitrogen 11.8 mg/dL (9.0-27.0); Carbon Dioxide 23.5 mmol/L (21.6-31.8); Chloride 113 mmol/L (96-109); Glucose 96 mg/dL (70-110); Magnesium 2.2 mg/dL (1.5-2.4); Sodium 148 mmol/L (135-145)
--- NOTE | 2023-11-23 10:31 | P.PN ---
Subjective Patient is seen in follow-up for acute kidney injury. Renal function improved. Sodium 148 today. Oral intake fair. Has chronic Odell catheter. Nonoliguric. Vital signs are stable. General: No acute distress. HEENT: Head exam is unremarkable. LUNGS: No audible rhonchi or wheezes. HEART: Rate and Rhythm are regular. ABDOMEN: Nontender. EXTREMITITES: No edema. Objective - Vital Signs Vital signs: Vital Signs Temp 98.7 F 11/23/23 07:15 Pulse 95 11/23/23 07:15 Resp 20 11/23/23 07:15 BP 144/77 11/23/23 07:15 Pulse Ox 93 L 11/23/23 07:15 FiO2 Intake & Output 11/22/23 11/23/23 11/23/23 18:59 06:59 18:59 Intake Total 240 Output Total 560 300 Balance -320 -300 Intake: Oral 240 Output: Urine 560 300 Other: Voiding Method Indwelling Catheter # Bowel Movements 1 1 - Labs CBC & Chem 7: 11/21/23 08:55 11/23/23 06:05 Labs: Abnormal Lab Results - Last 24 Hours (Table) 11/23/23 Range/Units 06:05 Sodium 148 H (135-145) mmol/L Chloride 113 H (96-109) mmol/L Microbiology - Last 24 Hours (Table) 11/21/23 09:52 Blood Culture - Preliminary Blood 11/21/23 10:07 Blood Culture - Preliminary Blood Assessment and Plan Plan: Assessment: 1. Acute kidney injury secondary to vasomotor nephropathy from hypovolemia. Cr eatinine 1.9 upon initial presentation in [facility] and down to 0.9 today. UA with trace protein and suggestive of UTI. No hydronephrosis noted on kidney ultrasound. 2. Bladder mass noted on kidney ultrasound. Urology following. Will need cystoscopy in near future. 3. Constipation and possible ileus being followed by surgery. On full liquid diet. 4. History of MS. 5. Hypernatremia from lack of oral water intake. Plan: Change IV fluids to D5W to be run at 60 cc an hour. Encouraged oral intake, including free water. Avoid nephrotoxins. Continue to monitor renal function and urine output.
[2023-11-23] MEDS: DEXTROSE 5% IN WATER 1,000 ML IV SCH (11:55)
--- NOTE | 2023-11-23 13:00 | P.PN ---
Subjective Progress Note Date: 11/23/23 Principal diagnosis: Urinary retention, possible UTI, possible bladder mass The Odell catheter remains in place, draining bloody urine without clots. The patient has no complaints. Objective - Vital Signs Vital signs: Vital Signs Temp 98.7 F 11/23/23 12:26 Pulse 93 11/23/23 12:26 Resp 20 11/23/23 12:26 BP 133/79 11/23/23 12:26 Pulse Ox 93 L 11/23/23 12:26 FiO2 Intake & Output 11/22/23 11/23/23 11/23/23 18:59 06:59 18:59 Intake Total 240 Output Total 560 300 Balance -320 -300 Intake: Oral 240 Output: Urine 560 300 Other: Voiding Method Indwelling Catheter Indwelling Catheter # Bowel Movements 1 1 - Constitutional General appearance: Present: average body habitus, cooperative, no acute distress - Psychiatric Psychiatric: Present: A&O x's 3 - Labs CBC & Chem 7: 11/21/23 08:55 11/23/23 06:05 Labs: Abnormal Lab Results - Last 24 Hours (Table) 11/23/23 Range/Units 06:05 Sodium 148 H (135-145) mmol/L Chloride 113 H (96-109) mmol/L Microbiology - Last 24 Hours (Table) 11/21/23 09:52 Blood Culture - Preliminary Blood 11/21/23 10:07 Blood Culture - Preliminary Blood Assessment and Plan (1) Urinary tract infection Current Visit: Yes Status: Acute Code(s): N39.0 - URINARY TRACT INFECTION, SITE NOT SPECIFIED SNOMED Code(s): 43099811 (2) Retention of urine, unspecified Current Visit: Yes Status: Acute Code(s): R33.9 - RETENTION OF URINE, UNSPECIFIED SNOMED Code(s): 799776831 (3) Abnormal radiologic findings on diagnostic imaging of renal pelvis, ureter, or bladder Current Visit: Yes Status: Acute Code(s): R93.41 - ABN RADLGC FIND ON DX MIRIAM GING RENAL PELV, URETER, OR BLDDR SNOMED Code(s): 810695513 Plan: The patient currently has a 12 Faroese [address] catheter in place. He is receiving tamsulosin but not antibiotics. The urine draining is bloody with small clots. He is comfortable. Urine and blood cultures are pending. I would suggest he continue to be treated empirically for a UTI, as his evaluation at [facility] suggested the presence of such. It would be reasonable to remove the Odell catheter for a voiding trial in 1 to 2 days. If he fails that voiding trial, he should be discharged with a Odell catheter, as the retention could be due to MS and/or BPH. I reemphasized to the patient the need for outpatient to rule out intravesical pathology. He has indicated that he would prefer to follow-up with Dr. Salinas in [place] if possible, as this is closer to him and transportation is problematic for him.
--- NOTE | 2023-11-23 14:47 | P.PN ---
Subjective Progress Note Date: 11/23/23 He is having multiple bowel movements on bowel regimen. Decreased/resolving abdominal pain. PLAN: 1. Abdominal xray for follow up on constipation and abdominal pain 2. Advance to low fiber diet. Objective - Vital Signs Vital signs: Vital Signs Temp 98.7 F 11/23/23 12:26 Pulse 93 11/23/23 12:26 Resp 20 11/23/23 12:26 BP 133/79 11/23/23 12:26 Pulse Ox 93 L 11/23/23 12:26 FiO2 Intake & Output 11/22/23 11/23/23 11/23/23 18:59 06:59 18:59 Intake Total 240 Output Total 560 300 Balance -320 -300 Intake: Oral 240 Output: Urine 560 300 Other: Voiding Method Indwelling Catheter Indwelling Catheter # Bowel Movements 1 1 - Labs CBC & Chem 7: 11/21/23 08:55 11/23/23 06:05 Labs: Abnormal Lab Results - Last 24 Hours (Table) 11/23/23 Range/Units 06:05 Sodium 148 H (135-145) mmol/L Chloride 113 H (96-109) mmol/L Microbiology - Last 24 Hours (Table) 11/21/23 09:52 Blood Culture - Preliminary Blood 11/21/23 10:07 Blood Culture - Preliminary Blood
--- NOTE | 2023-11-23 15:29 | XR ---
EXAMINATION TYPE: XR abdomen 1V DATE OF EXAM: 11/23/2023 3:25 PM CLINICAL INDICATION:Male, 68 years old with history of Abdominal pain, constipation; [facility] COMPARISON: None. TECHNIQUE: One radiographic view of the abdomen was obtained. FINDINGS: The bowel gas pattern is nonspecific without dilated loops of small or large bowel. There i s no evidence for organomegaly or pneumoperitoneum. The osseous structures are intact. No abnormal calcifications are present. Fecal material and gas are demonstrated throughout the colon and rectum. Postsurgical hardware is noted in the lower lumbar spine. Odell catheter is identified. IMPRESSION: Nonspecific bowel gas pattern without radiographic evidence for acute process.
--- NOTE | 2023-11-23 17:29 | P.PN ---
Subjective Progress Note Date: 11/23/23 68-year-old male who presented to [facility] yesterday with lower abdominal pain. He is a vague historian. He was diagnosed with a UTI. He reported constipation and was disimpacted. He left the hospital but returned with persistent symptoms. On that second visit, a CT scan of the abdomen and p nahun was obtained. This showed bilateral renal atrophy with symmetrical contrast excretion, bilateral renal lesions presumed to be cysts, and an enlarged prostate that extended intravesically. Apparently the bladder was distended despite a Odell catheter being in place, and the catheter was irrig ated. Over 500 cc was drained and the patient's lower abdominal discomfort resolved. The patient was diagnosed with MS in 2000. He has chronic low back pain with spinal stenosis. He is a vague historian. He denies any prior history of urolithiasis, but is unsure whether or not he has ever been treated for a UTI. He states that he has never been told he had an enlarged prostate. He reports occasional fecal incontinence but is unable to state whether he experiences urinary incontinence. Patient has been evaluated by urology for possible bladder mass on renal ultrasound; likely intravesical BPH; patient is recommended cystoscopy as an outpatient --Surgery on board for fecal retention/ileus; patient has been placed on a bowel regimen and a full liquid diet Objective - Vital Signs Vital signs: Vital Signs Temp 98.7 F 11/23/23 07:15 Pulse 95 11/23/23 07:15 Resp 20 11/23/23 07:15 BP 144/77 11/23/23 07:15 Pulse Ox 93 L 11/23/23 07:15 FiO2 Intake & Output 11/22/23 11/23/23 11/23/23 18:59 06:59 18:59 Intake Total 240 Output Total 560 300 Balance -320 -300 Intake: Oral 240 Output: Urine 560 300 Other: Voiding Method Indwelling Catheter Indwelling Catheter # Bowel Movements 1 1 - Exam GENERAL: BMI 26.5, reclining in bed not in distress. EYES: Pupils equal. Conjunctiva leslie l. HEENT: External appearance of nose and ears normal, oral cavity grossly normal. NECK: JVD not raised; masses not palpable. HEART: First and second heart sounds are normal; no edema. LUNGS: Respiratory rate normal; clear to auscultation. ABDOMEN: Soft, nontender, liver spleen not palpable, no masses palpable. Odell catheter PSYCH: Alert and oriented x3; mood and affect leslie l. MUSCULOSKELETAL:No Clubbing/cyanosis;muscles-grossly intact. Right foot brace- dropfoot NEUROLOGICAL: Cranial nerves grossly intact; no facial asymmetry, power and sensation grossly intact. LYMPHATICS: No lymph nodes palpable in the axilla and neck - Labs CBC & Chem 7: 11/21/23 08:55 11/23/23 06:05 Labs: Abnormal Lab Results - Last 24 Hours (Table) 11/23/23 Range/Units 06:05 Sodium 148 H (135-145) mmol/L Chloride 113 H (96-109) mmol/L Microbiology - Last 24 Hours (Table) 11/21/23 09:52 Blood Culture - Preliminary Blood 11/21/23 10:07 Blood Culture - Preliminary Blood Assessment and Plan Assessment: 1. Severe obstipation from fecal retention. Causing some bowel distention. Patient normally goes to has a bowel movement 2-3 times a week. That explains some of his abdominal discomfort. Mag citrate and soapsuds enema ordered. Consult surgery. 2. Acute kidney injury, likely obstructive from distended bladder likely from component of prostatomegaly and fecal retention. Odell catheter was placed at the other hospital. Creatinine has come down to from 1.9-1.3 Rule out chronic component. Renal ultrasound 3. Multiple sclerosis. Patient has chronic leg weakness. Has diagnosed in January 2001. Treated withTecfidera until March 2014. Right foot with brace. 4. Chronic lower back pain/lumbar region. Has had prior decompression laminectomy. 5. BPH, as seen on CT scan also patient has BPH symptoms. Start Flomax 0.4 mg nightly. DC trial Odell tomorrow after patient is also had bowel movement. DVT prophylaxis; SCDs/subcu Lovenox CODE STATUS; full code
[2023-11-24 08:52] LABS: BUN/Creat Ratio 8.22 Ratio (12.00-20.00); Blood Urea Nitrogen 7.4 mg/dL (9.0-27.0); Calcium 8.5 mg/dL (8.7-10.3); Chloride 107 mmol/L (96-109); Glucose 110 mg/dL (70-110); Magnesium 2.1 mg/dL (1.5-2.4); Sodium 141 mmol/L (135-145)
--- NOTE | 2023-11-24 11:46 | P.PN ---
Subjective patient is seen for follow-up for acute kidney injury. Renal function has improved. Currently maintained on D5W for mild hypernatremia. Serum sodium down to 141 today. No significant complaints. Objective - Vital Signs Vital signs: Vital Signs Temp 98.4 F 11/24/23 07:38 Pulse 92 11/24/23 07:38 Resp 19 11/24/23 07:38 BP 148/69 11/24/23 07:38 Pulse Ox 93 L 11/24/23 07:38 FiO2 Intake & Output 11/23/23 11/24/23 11/24/23 18:59 06:59 18:59 Intake Total 615 Output Total 150 0 500 Balance 465 0 -500 Intake: Intake, IV Titration 615 Amount Dextrose 5% in Water 1, 240 000 ml @ 60 mls/hr IV . [id number] [facility] Rx#:[id number] Sodium Chloride 0.9% 1, 375 000 ml @ 75 mls/hr IV . [id number] ANTION[facility] Rx#:[id number] Output: Urine 150 0 500 Other: Voiding Method Indwelling Catheter Indwelling Catheter # Bowel Movements 1 - Exam patient is awake, comfortable, no acute distress Examination of the heart S1 and S2 Examination of the lungs bilateral breath sounds are heard examination of the abdomen shows it is soft and nontender Examination of lower extremities shows no significant edema [employer] exam grossly intact - Labs CBC & Chem 7: 11/21/23 08:55 11/24/23 06:04 Labs: Abnormal Lab Results - Last 24 Hours (Table) 11/24/23 Range/Units 06:04 BUN 7.4 L (9.0-27.0) mg/dL BUN/Creatinine Ratio 8.22 L (12.00-20.00) Ratio Calcium 8.5 L (8.7-10.3) mg/dL Microbiology - Last 24 Hours (Table) 11/21/23 09:52 Blood Culture - Preliminary Blood 11/21/23 10:07 Blood Culture - Preliminary Blood 11/22/23 14:15 Urine Culture - Final Urine,Catheterized Assessment and Plan Assessment: 1. Acute kidney injury secondary to vasomotor nephropathy from hypovolemia. Creatinine 1.9 upon initial presentation in [facility] and down to 0.9 today. UA with trace protein and suggestive of UTI. No hydronephrosis noted on kidney ultrasound. 2. Bladder mass noted on kidney ultrasound. Urology following. Will need cystoscopy in near future. 3. Constipation and possible ileus being followed by surgery. On full liquid diet. 4. History of MS. 5. Hypernatremia from lack of oral water intake. improved Plan: continue D5W for 1 more day Repeat labs in a.m. Encourage increased oral intake particularly fluids.
--- NOTE | 2023-11-24 12:59 | PN ---
PROGRESS NOTE DATE OF SERVICE: 11/24/2023 SUBJECTIVE: This is a 68-year-old gentleman admitted with possible bladder mass and UTI, referred from [facility], is being closely monitored at this time. Urology has recommended the patient to follow up in the outpatient setting after a voiding trial and the patient would like to follow up with a urologist in the [place], Dr. Salinas. Otherwise, the patient also complains of extreme weakness of both lower limbs also. The cultures are negative so far. PAST MEDICAL HISTORY: Reviewed. REVIEW OF SYSTEMS: Fourteen-point review is negative except as mentioned earlier. CURRENT MEDICATIONS: Reviewed include IV Rocephin. Doses and rest of medications noted. PHYSICAL EXAMINATION: VITAL SIGNS: Pulse 92, blood pressure 140/69, respirations 19. CHEST: Clear to auscultation. CARDIOVASCULAR: S1, S2. ABDOMEN: Soft. NERVOUS SYSTEM: Both lower limbs extremely weak. LABORATORY DATA: Sodium 142. Rest of the labs are noted. Abdominal x-ray was done, which showed nonspecific bowel gas pattern. ASSESSMENT: 1. Acute urinary tract infection with possible bladder mass. 2. Severe obstipation and fecal retention. 3. Severe weakness and gait dysfunction. 4. Multiple sclerosis. 5. Chronic low back pain. 6. History of benign prostate hypertrophy. 7. Multiple complex medical issues. RECOMMENDATIONS AND DISCUSSION: This is a 68-year-old gentleman, who presented with multiple complex medical issues. We will monitor the patient closely. I would recommend to continue antibiotics, obtain the cultures. I would also recommend Neurology consultation to rule out the possibility of MS exacerbation. Otherwise, PT, OT evaluation, possible ECF rehab. Prognosis guarded because of multiple complex medical issues. Further recommendations to follow. The patient still has Odell catheter in-situ. MMODL / IJN: [id number] /
--- NOTE | 2023-11-24 13:13 | P.PN ---
Subjective Progress Note Date: 11/24/23 CHIEF COMPLAINT: Constipation HISTORY OF PRESENT ILLNESS: Patient with known history of MS. Surgical service following in regards to constipation. Patient is having bowel movements. Reports decrease in abdominal pain. Has Odell catheter in place with hematuria. He is followed by urology. Abdominal x-ray reports nonspecific bowel gas pattern. PHYSICAL EXAM: VITAL SIGNS: Reviewed GENERAL: Well-developed in no acute distress. HEENT: No sclera icterus. Extraocular movements grossly intact. Moist buccal mucosa. Head is atraumatic, normocephalic. Hears conversational speech. No nasal drainage. NECK: Supple without lymphadenopathy. CHEST: Non-labored respirations and equal bilateral excursions. CARDIOVASCULAR: Palpable 2+ radial pulses. ABDOMEN: Soft. Nondistended. Nontender. MUSCULOSKELETAL: No clubbing or cyanosis. NEUROLOGIC: No focal or lateralizing signs. Cranial nerves II through XII grossly intact. PSYCH: Appropriate affect. Alert and oriented to person, place and time. SKIN: Well perfused. Good skin turgor. ASSESSMENT: 1. Constipation improving 2. History of multiple sclerosis 3. Hematuria with urinary retention has Odell catheter in place. UTI with poss ible bladder mass. Followed by urology. PLAN: -Patient having bowel movements. He is tolerating diet. -Continue the lactulose -Recommend good bowel regimen -Surgical service will sign off. Please call with any questions or concerns Physician Gas Generator Operator note has been reviewed by physician. Signing provider agrees with the documented findings, assessment, and plan of care. Objective - Vital Signs Vital signs: Vital Signs Temp 98.9 F 11/24/23 13:05 Pulse 91 11/24/23 13:05 Resp 18 11/24/23 13:05 BP 129/80 11/24/23 13:05 Pulse Ox 92 L 11/24/23 13:05 FiO2 Intake & Output 11/23/23 11/24/23 11/24/23 18:59 06:59 18:59 Intake Total 615 Output Total 150 0 500 Balance 465 0 -500 Intake: Intake, IV Titration 615 Amount Dextrose 5% in Water 1, 240 000 ml @ 60 mls/hr IV . [id number] [facility] Rx#:[id number] Sodium Chloride 0.9% 1, 375 000 ml @ 75 mls/hr IV . [id number] [facility] Rx#:[id number] Output: Urine 150 0 500 Other: Voiding Method Indwelling Catheter Indwelling Catheter # Bowel Movements 1 - Labs CBC & Chem 7: 11/21/23 08:55 11/24/23 06:04 Labs: Abnormal Lab Results - Last 24 Hours (Table) 11/24/23 Range/Units 06:04 BUN 7.4 L (9.0-27.0) mg/dL BUN/Creatinine Ratio 8.22 L (12.00-20.00) Ratio Calcium 8.5 L (8.7-10.3) mg/dL Microbiology - Last 24 Hours (Table) 11/21/23 09:52 Blood Culture - Preliminary Blood 11/21/23 10:07 Blood Culture - Preliminary Blood 11/22/23 14:15 Urine Culture - Final Urine,Catheterized
[2023-11-24 15:30] VITALS: BMI 26.4
--- NOTE | 2023-11-25 10:17 | P.CNNES ---
History of Present Illness Consult date: 11/24/23 Requesting physician: Debbie Bocanegra Reason for Consult: MS exacerbation?? History of Present Illness: Patient is a 68-year-old right-handed male who has a diagnosis of multiple sclerosis since 1999, came to the hospital by ambulance on 11/21/2023 at 8:24 AM for a fall. As per EMS flowsheet, it was reported that patient had been brought to the ED for chronic back pain the day prior. Patient was found to have an acute kidney injury and fecal impaction. Patient had a Odell's catheter and history of UTI. CT lumbar spine showed no fracture or malalignment. Upon EMS arrival, patient was laying in the bed. Patient was alert and oriented x 4 with GCS of 15. Patient complained of lumbar back pain, described as is chronic. No trauma observed. Patient's Odell's bag showed dark brown/red urine. Abdomen was soft and nontender. Pupils are equal and reactive. Patient was transferred for nephrology and GI resources. Patient was diagnosed with MS in 1999. He used to follow-up with Dr. Rosen, used to be on Avonex in the past but has been off medication for "years", has not seen a neurologist for "a long time", came to the hospital because of frequent falls. Patient states that he mostly stays in the wheelchair to get around inside the home. He feels more secure. He does have a walker but does not use "that much". He states that he fell at home and was brought by ambulance to the hospital. He will currently lives in [facility]. Vital signs at the scene was blood pressure 128/86, pulse rate 90, respiration 16, saturation 94% temperature 36.7. Blood test shows normal WBC count, hemoglobin 10.8, platelets 436. CMP showed normal electrolytes with BUN 44 creatinine 1.36. Hepatic panel normal. UA shows large amount of blood, moderate leukocyte esterase and more than 182 WBCs and RBCs. KUB showed dilated bowel loops. Could be on the basis of ileus or partial distal colonic obstruction. Correlate for fecal impaction. X-ray of the lumbar spine showed postoperative change with multilevel additional severe degenerative disc disease extending from levels T12-L3. Severe left hip art hropathy. There is areas of sclerosis involving the left pelvic bone partially included in the [id number] and indeterminate etiology. Ultrasound of the abdomen showed Odell's catheter in place with irregular shaped tissue extending from the bladder base. Unclear if this is blood products or irregular pedunculated mass. Correlate with urinalysis. Consider cystoscopy for complete evaluation. Right renal simple appearing cysts. Repeat abdominal x-ray showed nonspecific bowel gas pattern without radiographic evidence of acute process. Patient states that he smokes cigar once in a while, never smoked tobacco. He drinks 1 beer with his brother, socially. Does not use any marijuana. He lives by himself. He was for 37 years before he was . He has a son and a daughter. His son lives in [place] where his daughter lives in the [facility]. Patient states that he does have occasional bladder accidents. Denies any problem with bowel control. He believes his legs are weak but no numbness. His arms have good strength. He wears glasses otherwise the vision is fine. Review of Systems Constitutional: Denies chills, Denies fever Eyes: denies blurred vision, denies diplopia, denies pain, denies loss of vision Ears: left: decreased hearing (age related), deny: ear discharge Ears, nose, mouth and throat: Denies headache, Denies sore throat, Denies vertigo Cardiovascular: Denies chest pain, Denies lightheadedness, Denies shortness of breath Respiratory: Denies cough, Denies excessive sputum Gastrointestinal: Reports diarrhea, Denies abdominal pain, Denies nausea, Denies vomiting Genitourinary: Reports incontinence, Denies dysuria Musculoskeletal: Reports low back pain, Denies neck pain Integumentary: Denies pruritus, Denies rash Neurological: Reports as per HPI Psychiatric: Denies anxiety, Denies depression Endocrine: Reports fatigue (sometimes), Denies weight change Past Medical History Additional Past Medical History / Comment(s): MS (LEG WEAKNESS, CANE, FALL RISK) diagnosed in January 2001 and treated with Tecfidera until March 2014. Right foot drop with foot brace CHRONIC BACK PAIN with degenerative scoliosis and spinal stenosis. History of Any Multi-Drug Resistant Organisms: None Reported Additional Past Surgical History / Comment(s): Laminectomy, decompression and fusion of L3-4 and L4-5 06/20/2014. Past Psychological History: No Psychological Hx Reported Smoking Status: Former smoker Past Alcohol Use History: Rare Past Drug Use History: None Reported - Past Family History Mother Family Medical History: AICD/Pacemaker, Mitral Valve Prolapse (MVP) Father Family Medical History: CVA/TIA, Diabetes Mellitus Medications and Allergies Home Medications Medication Instructions Recorded Confirmed Type No Known Home Medications 11/21/23 11/21/23 History Allergies Allergy/AdvReac Type Severity Reaction Status Date / Time No Known Allergies Allergy Verified 11/21/23 09:58 Physical Examination - Vital Signs Vital Signs: Vital Signs Temp Pulse Resp BP Pulse Ox 11/24/23 13:05 98.9 F 91 18 129/80 92 L 11/24/23 07:38 98.4 F 92 19 148/69 93 L 11/24/23 01:32 98.4 F 86 16 162/82 91 L 11/23/23 20:00 99.1 F 88 16 147/76 94 L Intake and Output 11/24/23 11/24/23 11/24/23 06:59 14:59 22:59 Intake Total 120 Output Total 0 500 Balance 0 -380 Intake: Oral 120 Output: Urine 0 500 Other: Voiding Method Indwelling Catheter # Bowel Movements 1 Weight 86.183 kg Patient is an elderly male, very pleasant in no acute distress. Patient is alert awake. Patient states his other November or December and the year is either 2022 or 2023. He knows that he is in [facility] in [facility]. He knows that he lives in [facility]. Patient could not tell name of the president. When I said if it was Objanessa, patient said yes for that. However when I give him multiple choices, he was able to tell Mr. Molina. Speech and language functions are normal. Patient can name and repeat very well. No aphasia or dysarthria. Attention, concentration and fund of knowledge is adequate. On cranial nerve examination, right pupil is slightly bigger but both are reactive. His visual hsu are full on confrontation, with no neglect on double simultaneous stimulation. Extraocular muscles are intact with no nystagmus. Face is symmetric, tongue protrudes to the midline. Palatal elevation and sensation normal, hearing and shoulder shrug normal, facial sensation normal. On muscle strength testing, patient has some weakness of proximal upper arms, but the left upper arm drifts lower than the right at baseline. It was somewhat tender as well. Muscle strength (right/left) deltoid 4/4 (left comes higher), biceps 4/5, triceps 5/4, botany technician 4/5. In the lower limbs hip flexion 3+4-/5-, ankle dorsiflexion 0/5, toe extension 0/5. Patient has significant arthritic sounds noted in the left knee. Deep tendon reflexes are (right/left) biceps 1+/trace brachioradialis 1+/0, knee 0/0, ankle 0/0, plantar is flat on the right, possible up on the left. Sensory to touch is equal with no neglect on double simultaneous stimulation. Cerebellar function showed no ataxia for [id number] testing with the right upper limb, could not do with the left upper limb. Tone and bulk of muscles normal. Gait deferred.. On general examination, there is no carotid bruit or murmur, S1-S2 audible. Chest is clear on consultation. Abdomen is soft nontender. No organomegaly, bowel sounds present. Peripheral pulses are present. No peripheral edema. Results - Laboratory Findings CBC and BMP: 11/21/23 08:55 11/24/23 06:04 Abnormal Lab Findings: Abnormal Labs 11/21/23 11/21/23 11/21/23 08:55 08:55 08:55 RBC 3.68 L Hgb 10.8 L Hct 32.9 L Sodium Chloride BUN 44 H Creatinine 1.36 H BUN/Creatinine Ratio Glucose 102 H Calcium Albumin 3.2 L Urine Protein Trace H Urine Blood Large H Ur Leukocyte Esterase Moderate H Urine RBC >182 H Urine WBC >182 H Ur Squamous Epith Cells 22 H Amorphous Sediment Moderate H Urine Bacteria Many H Urine Mucus Many H 11/22/23 11/23/23 11/24/23 05:48 06:05 06:04 RBC Hgb Hct Sodium 148 H Chloride 110 H 113 H BUN 24 H 7.4 L Creatinine BUN/Creatinine Ratio 8.22 L Glucose Calcium 8.5 L Albumin Urine Protein Urine Blood Ur Leukocyte Esterase Urine RBC Urine WBC Ur Squamous Epith Cells Amorphous Sediment Urine Bacteria Urine Mucus Assessment and Plan Assessment: * Frequent falls, likely multifactorial, as mentioned below. * History of multiple sclerosis, with chronic right foot drop. * Disability, due to MS. * Chronic low back pain * Rule out other metabolic causes of weakness like B12 or folate deficiency. * Possible UTI * Acute kidney injury, improving * Possible bladder mass, urology following. * Ileus, with fecal retention, surgery following Plan: * Patient has longstanding history of multiple sclerosis, stays mostly in the wheelchair. His examination revealed significant asymmetric weakness of the upper and lower extremities, with prominent right foot drop. Patient could not tell if he has any new weakness or not. I do not have any previous documented neurological examination to compare with. It is unclear if patient has any MS exacerbation, or some other mechanical issues, or metabolic prob lems leading to new weakness, if at all. * At this time, we will check for any metabolic/nutritional deficiencies including B12, folate, TSH, RPR, B6 and MMA. * If no obvious answers identified, we will consider empiric treatment with high-dose steroids. * We will discuss with the primary team. Other management as per IM and other specialties. * Neurology will follow. Thank you for the consult.
[2023-11-25] MEDS: CYANOCOBALAMIN 1,000 MCG/ML 1 ML VIAL IM SCH (11:23)
--- NOTE | 2023-11-25 12:21 | P.PN ---
Subjective patient is seen for follow-up for acute kidney injury. Renal function has improved. Currently maintained on D5W for mild hypernatremia. Serum sodium down to 141 yesterday. Sodium is pending from today. No significant complaints. Objective - Vital Signs Vital signs: Vital Signs Temp 98.4 F 11/25/23 08:00 Pulse 94 11/25/23 08:00 Resp 18 11/25/23 08:00 BP 125/74 11/25/23 08:00 Pulse Ox 92 L 11/25/23 02:00 FiO2 Intake & Output 11/24/23 11/25/23 11/25/23 18:59 06:59 18:59 Intake Total 960 Output Total 900 250 480 Balance 60 -250 -480 Weight 86.183 kg Intake: Intake, IV Titration 720 Amount Dextrose 5% in Water 1, 720 000 ml @ 60 mls/hr IV . [id number] [facility] Rx#:[id number] Oral 240 Output: Urine 900 250 480 Other: Voiding Method Indwelling Catheter Indwelling Catheter Indwelling Catheter - Exam patient is awake, comfortable, no acute distress Examination of the heart S1 and S2 Examination of the lungs bilateral breath sounds are heard examination of the abdomen shows it is soft and nontender Examination of lower extremities shows no significant edema EMERGENCY DEPARTMENT COORDINATOR exam grossly intact - Labs CBC & Chem 7: 11/21/23 08:55 11/24/23 06:04 Labs: Microbiology - Last 24 Hours (Table) 11/21/23 09:52 Blood Culture - Preliminary Blood 11/21/23 10:07 Blood Culture - Preliminary Blood Assessment and Plan Assessment: 1. Acute kidney injury secondary to vasomotor nephropathy from hypovolemia. Creatinine 1.9 upon initial presentation in [facility] and down to 0.9. UA with trace protein and suggestive of UTI. No hydronephrosis noted on kidney ultrasound. 2. Bladder mass noted on kidney ultrasound. Urology following. Will need cystoscopy in near future. 3. Constipation and possible ileus being followed by surgery. On full liquid diet. 4. History of MS. 5. Hypernatremia from lack of oral water intake. improved Plan: follow-up on sodium from today as patient is maintained on D5W. Continue to encourage increase free water intake.
[2023-11-25 12:35] LABS: Blood Urea Nitrogen 6.3 mg/dL (9.0-27.0); Calcium 8.5 mg/dL (8.7-10.3); Carbon Dioxide 24.8 mmol/L (21.6-31.8); Chloride 104 mmol/L (96-109); Glucose 108 mg/dL (70-110); Potassium 4.1 mmol/L (3.5-5.5); Sodium 138 mmol/L (135-145)
[2023-11-25 12:44] LABS: Basophils # (A) 0.03 X 10*3/uL (0.00-0.10); Basophils % (A) 0.3 %; Eosinophils # (A) 0.51 X 10*3/uL (0.04-0.35); Eosinophils % (A) 4.6 %; HCT 29.9 % (39.6-50.0); HGB 9.5 g/dL (13.0-17.0); Lymphocytes # (A) 0.97 X 10*3/uL (0.90-5.00); Lymphocytes % (A) 8.7 %; MCH 28.9 pg (27.0-32.0); MCHC 31.8 g/dL (32.0-37.0); MCV 90.9 FL (80.0-97.0); Mean Platelet Volume 11.3 FL (9.5-12.2); Monocytes # (A) 0.89 X 10*3/uL (0.20-1.00); NRBC Per 100 WBC 0 X 10*3/uL (0.00-0.01); Neutrophils # (A) 8.61 X 10*3/uL (1.80-7.70); Neutrophils % (A) 77.7 %; Platelet Count 385 X 10*3/uL (140-440); RBC 3.29 X 10*6/uL (4.40-5.60); RDW 13.9 % (11.5-14.5); WBC 11.09 X 10*3/uL (4.50-10.00)
[2023-11-25] MEDS: methylPREDNISolone SOD SUCCIN 1,000 MG in SODIUM CHLORIDE 0.9% 250 ML IVPB SCH (20:35)
--- NOTE | 2023-11-26 01:00 | PN ---
PROGRESS NOTE DATE OF SERVICE: 11/25/2023 SUBJECTIVE: This is a 68-year-old gentleman, who was admitted with acute UTI with possible bladder mass, is being closely monitored. No chest pain. No palpitations. No fever. The patient is on antibiotics. Cultures are negative so far. PHYSICAL EXAMINATION: VITAL SIGNS: Pulse is 86, blood pressure 120/70, respirations 16. CHEST: Clear to auscultation. CARDIOVASCULAR: S1, S2. ABDOMEN: Soft, obese. NERVOUS SYSTEM: No focal deficits. LABORATORY DATA: Reviewed. ASSESSMENT: 1. Acute urinary tract infection with possible bladder mass. 2. Urinary tract infection, possibly. 3. Severe obstipation and fecal retention. 4. Severe weakness and gait dysfunction. 5. Multiple sclerosis. 6. Chronic back pain. 7. History of BPH. 8. Multiple complex medical issues. RECOMMENDATIONS: Recommend to continue current medications and continue symptomatic treatment. Otherwise, increase ambulation. Repeat labs. Possible discharge in the next 24 hours. MMODL / IJN: [id number] /
[2023-11-26 11:22] LABS: Basophils # (A) 0.02 X 10*3/uL (0.00-0.10); Basophils % (A) 0.1 %; Eosinophils # (A) 0.01 X 10*3/uL (0.04-0.35); Eosinophils % (A) 0.1 %; HCT 33.5 % (39.6-50.0); HGB 10.5 g/dL (13.0-17.0); Lymphocytes # (A) 0.84 X 10*3/uL (0.90-5.00); Lymphocytes % (A) 5.9 %; MCH 28.2 pg (27.0-32.0); MCHC 31.3 g/dL (32.0-37.0); MCV 90.1 FL (80.0-97.0); Mean Platelet Volume 11.3 FL (9.5-12.2); Monocytes # (A) 0.12 X 10*3/uL (0.20-1.00); Monocytes % (A) 0.8 %; NRBC Per 100 WBC 0 X 10*3/uL (0.00-0.01); Neutrophils # (A) 13.23 X 10*3/uL (1.80-7.70); Neutrophils % (A) 92.3 %; Platelet Count 407 X 10*3/uL (140-440); RBC 3.72 X 10*6/uL (4.40-5.60); RDW 13.5 % (11.5-14.5); WBC 14.34 X 10*3/uL (4.50-10.00)
--- NOTE | 2023-11-26 11:44 | P.PN ---
Subjective patient is seen for follow-up for acute kidney injury. Renal function has improved. Currently maintained on D5W for mild hypernatremia. Serum sodium down to 138 No significant complaints. Objective - Vital Signs Vital signs: Vital Signs Temp 97.5 F L 11/26/23 08:00 Pulse 93 11/26/23 08:00 Resp 16 11/26/23 08:00 BP 148/84 11/26/23 08:00 Pulse Ox 93 L 11/26/23 08:00 FiO2 Intake & Output 11/25/23 11/26/23 11/26/23 18:59 06:59 18:59 Intake Total 770 120 Output Total 880 1300 Balance -110 -1300 120 Intake: Intake, IV Titration 770 Amount Dextrose 5% in Water 1, 720 000 ml @ 60 mls/hr IV . [id number] [facility] Rx#:[id number] 1 gm In 50 Sodium Chloride 0.9% 50 ml @ 100 mls/hr IVPB Q24HR [facility] Rx#:[id number] Oral 120 Output: Urine 880 1300 Other: Voiding Method Indwelling Catheter Indwelling Catheter - Exam patient is awake, comfortable, no acute distress Examination of the heart S1 and S2 Examination of the lungs bilateral breath sounds are heard examination of the abdomen shows it is soft and nontender Examination of lower extremities shows no significant edema VEGETABLE TIER exam grossly intact - Labs CBC & Chem 7: 11/26/23 07:28 11/25/23 07:39 Labs: Abnormal Lab Results - Last 24 Hours (Table) 11/25/23 11/25/23 11/26/23 Range/Units 07:39 07:39 07:28 WBC 11.09 H 14.34 H (4.50-10.00) X 10*3/uL RBC 3.29 L 3.72 L (4.40-5.60) X 10*6/uL Hgb 9.5 L 10.5 L (13.0-17.0) g/dL Hct 29.9 L 33.5 L (39.6-50.0) % MCHC 31.8 L 31.3 L (32.0-37.0) g/dL Immature Gran # 0.08 H 0.12 H (0.00-0.04) X 10*3/uL Neutrophils # 8.61 H 13.23 H (1.80-7.70) X 10*3/uL Lymphocytes # 0.84 L (0.90-5.00) X 10*3/uL Monocytes # 0.12 L (0.20-1.00) X 10*3/uL Eosinophils # 0.51 H 0.01 L (0.04-0.35) X 10*3/uL BUN 6.3 L (9.0-27.0) mg/dL BUN/Creatinine Ratio 7.00 L (12.00-20.00) Ratio Calcium 8.5 L (8.7-10.3) mg/dL Assessment and Plan Assessment: 1. Acute kidney injury secondary to vasomotor nephropathy from hypovolemia. Creatinine 1.9 upon initial presentation in [facility] and down to 0.9. UA with trace protein and suggestive of UTI. No hydronephrosis noted on kidney ultrasound. 2. Bladder mass noted on kidney ultrasound. Urology following. Will need cystoscopy in near future. 3. Constipation and possible ileus being followed by surgery. On full liquid diet. 4. History of MS. 5. Hypernatremia from lack of oral water intake. improved Plan: DC D5W Repeat sodium in a.m. Continue to encourage increase free water intake.
[2023-11-26 12:08] LABS: BUN/Creat Ratio 10.11 Ratio (12.00-20.00); Blood Urea Nitrogen 9.1 mg/dL (9.0-27.0); Calcium 9.1 mg/dL (8.7-10.3); Carbon Dioxide 20.4 mmol/L (21.6-31.8); Chloride 103 mmol/L (96-109); Glucose 183 mg/dL (70-110); Potassium 4.8 mmol/L (3.5-5.5); Sodium 139 mmol/L (135-145)
--- NOTE | 2023-11-26 12:29 | P.PN ---
Subjective Progress Note Date: 11/25/23 Patient was seen for a follow-up. Patient denies any changes in the condition. I spoke to the patient's nurse, who mentioned that patient is generalized weak. He is declining workup and consultations. Patient has not been made no code. Objective - Vital Signs Vital signs: Vital Signs Temp 97.9 F 11/25/23 12:32 Pulse 86 11/25/23 12:32 Resp 16 11/25/23 12:32 BP 121/71 11/25/23 12:32 Pulse Ox 93 L 11/25/23 12:32 FiO2 Intake & Output 11/24/23 11/25/23 11/25/23 18:59 06:59 18:59 Intake Total 960 Output Total 900 250 880 Balance 60 -250 -880 Weight 86.183 kg Intake: Intake, IV Titration 720 Amount Dextrose 5% in Water 1, 720 000 ml @ 60 mls/hr IV . [id number] [facility] Rx#:[id number] Oral 240 Output: Urine 900 250 880 Other: Voiding Method Indwelling Catheter Indwelling Catheter Indwelling Catheter - Exam Detailed examination deferred. - Labs CBC & Chem 7: 11/26/23 07:28 11/26/23 07:28 Labs: Abnormal Lab Results - Last 24 Hours (Table) 11/25/23 11/25/23 Range/Units 07:39 07:39 WBC 11.09 H (4.50-10.00) X 10*3/uL RBC 3.29 L (4.40-5.60) X 10*6/uL Hgb 9.5 L (13.0-17.0) g/dL Hct 29.9 L (39.6-50.0) % MCHC 31.8 L (32.0-37.0) g/dL Immature Gran # 0.08 H (0.00-0.04) X 10*3/uL Neutrophils # 8.61 H (1.80-7.70) X 10*3/uL Eosinophils # 0.51 H (0.04-0.35) X 10*3/uL BUN 6.3 L (9.0-27.0) mg/dL BUN/Creatinine Ratio 7.00 L (12.00-20.00) Ratio Calcium 8.5 L (8.7-10.3) mg/dL Microbiology - Last 24 Hours (Table) 11/21/23 09:52 Blood Culture - Preliminary Blood 11/21/23 10:07 Blood Culture - Preliminary Blood Assessment and Plan Assessment: * Frequent falls, likely multifactorial, as mentioned below. * History of multiple sclerosis, with chronic right foot drop. Rule out MS exacerbation. * Disability, due to MS. * Chronic low back pain * Vitamin B12 deficiency * Possible UTI * Acute kidney injury, improving * Possible bladder mass, urology following. * Ileus, with fecal retention, surgery following Plan: * Patient has longstanding history of multiple sclerosis, stays mostly in the wheelchair. His examination revealed significant asymmetric weakness of the upper and lower extremities, with prominent right foot drop. Patient could n ot tell if he has any new weakness or not. I do not have any previous documented neurological examination to compare with. It is unclear if patient has any MS exacerbation, or some other mechanical issues, or metabolic problems leading to new weakness, if at all. * B12 207, folate 10.0, TSH 1.77. RPR nonreactive. B6, MMA pending. Patient has B12 deficiency. Patient will be started on vitamin B12 injection 1000 mcg IM daily for 3 days, then monthly injections. * Per nurse report, patient is apparently much worse than baseline. We will empirically start Solu-Medrol 1 g IVPB daily for 3 days for possible MS exacerbation. * Other management as per IM and other specialties. * Neurology will follow.
[2023-11-27] MEDS ORDERED: ACETAMINOPHEN TAB 325 MG TAB PO PRN (05:12)
--- NOTE | 2023-11-27 05:56 | P.PN ---
Subjective Progress Note Date: 11/26/23 This is a 68-year-old male who was recently admitted with acute urinary tract infection with possible bladder mass being followed by multiple medical consultations. Patient with significant weakness planning on going to rehab. Neurology following with concerns of possible MS exacerbation with significant symptoms and lower extremity weakness is being started on high-dose steroids. Nephrology following as well for acute kidney injury and hypernatremia which is improving and patient was continued on D5 which is being discontinued. Continues to report low back pain Review of systems: Constitutional: No reports of fatigue, fever, or chills Cardiovascular: No reports of chest pain or palpitations Respiratory: No reports of shortness of breath or cough GI: No reports of nausea, no reports of vomiting, no bowel movements in a few days : No reports of dysuria or retention, currently continues with indwelling Odell catheter Neurovascular: reports of generalized weakness, continued lower back pain All medications have been reviewed PHYSICAL EXAMINATION: GENERAL: The patient is alert and oriented x3, Well developed, well nourished. elderly appearing. HEENT: Pupils are round and equally reacting to light. EOMI. no scleral icterus. No conjunctival pallor. Normocephalic, atraumatic. No pharyngeal erythema. No thyromegaly. CARDIOVASCULAR: S1 and S2 muffled PULMONARY: diminished breath sounds bilaterally with no wheezing or rhonchi noted. ABDOMEN: soft. Nontender on exam. obese. non-distended, normoactive bowel sounds. No palpable organomegaly. MUSCULOSKELETAL: No joint swelling or deformity. EXTREMITIES: No cyanosis, clubbing, or pedal edema. NEUROLOGICAL: Gross neurological examination did not reveal any focal deficits. Diffuse weakness SKIN: No rashes. Assessment: Acute urinary tract infection with possible bladder mass, present on admission Urinary retention requiring indwelling Odell catheter Severe constipation and fecal retention Severe weakness and gait dysfunction History of multiple sclerosis with concerns of possible MS exacerbation Chronic back pain History of BPH GI prophylaxis DVT prophylaxis no code Plan: Recommend to continue with current medications and management with multiple medical consultations following. Patient was evaluated by urology recommending outpatient follow-up with his urologist Dr. Salinas on discharge. Continue antibiotics with concerns of urinary tract infection. Continue with indwelling Odell catheter until follow-up with urology Neurology consulted and following has ordered MRI although patient does not want to pursue further testing at this time. Patient has been started on high-dose IV steroids for 3-day course per neurology Patient continues to have some discomfort no bowel movement, recommend continuing with bowel regimen and will add a Fleet enema Case management following as patient will be going to ECF for continued strength and mobility although requires 3 night hospitalization according to Medicare guidelines. Due to multiple complex medical issues, prognosis is guarded The impression and plan of care has been dictated by Tracy Gutiérrez, nurse practitioner as directed. Dr. Daljit MD I have performed a history and examination and MDM of this patient, discussed with the dictator, and agree with the dictator's assessment and plan as written ,documented as a scribe. Based on total visit time, I have performed more than 50% of the visit. Any additional findings or plans will be noted. Objective - Vital Signs Vital signs: Vital Signs Temp 98.6 F 11/26/23 13:27 Pulse 100 11/26/23 13:27 Resp 19 11/26/23 13:27 BP 141/66 11/26/23 13:27 Pulse Ox 93 L 11/26/23 13:27 FiO2 Intake & Output 11/25/23 11/26/23 11/26/23 18:59 06:59 18:59 Intake Total 770 120 Output Total 880 1300 Balance -110 -1300 120 Intake: Intake, IV Titration 770 Amount Dextrose 5% in Water 1, 720 000 ml @ 60 mls/hr IV . [id number] [facility] Rx#:[id number] cefTRIAXone 1 gm In 50 Sodium Chloride 0.9% 50 ml @ 100 mls/hr IVPB Q24HR [facility] Rx#:[id number] Oral 120 Output: Urine 880 1300 Other: Voiding Method Indwelling Catheter Indwelling Catheter - Labs CBC & Chem 7: 11/26/23 07:28 11/26/23 07:28 Labs: Abnormal Lab Results - Last 24 Hours (Table) 11/26/23 11/26/23 Range/Units 07:28 07:28 WBC 14.34 H (4.50-10.00) X 10*3/uL RBC 3.72 L (4.40-5.60) X 10*6/uL Hgb 10.5 L (13.0-17.0) g/dL Hct 33.5 L (39.6-50.0) % MCHC 31.3 L (32.0-37.0) g/dL Immature Gran # 0.12 H (0.00-0.04) X 10*3/uL Neutrophils # 13.23 H (1.80-7.70) X 10*3/uL Lymphocytes # 0.84 L (0.90-5.00) X 10*3/uL Monocytes # 0.12 L (0.20-1.00) X 10*3/uL Eosinophils # 0.01 L (0.04-0.35) X 10*3/uL Carbon Dioxide 20.4 L (21.6-31.8) mmol/L Anion Gap 15.60 H (4.00-12.00) mmol/L BUN/Creatinine Ratio 10.11 L (12.00-20.00) Ratio Glucose 183 H (70-110) mg/dL
[2023-11-27] MEDS: HYDROcodone/APAP 5-325MG 1 EACH TAB PO PRN (11:51)
--- NOTE | 2023-11-27 12:06 | P.PN ---
Subjective Progress Note Date: 11/26/23 Patient was seen for a follow-up. Patient denies any changes in the condition. Patient complaining of severe low back pain. He says it is "very sore". Objective - Vital Signs Vital signs: Vital Signs Temp 98.6 F 11/26/23 13:27 Pulse 100 11/26/23 13:27 Resp 19 11/26/23 13:27 BP 141/66 11/26/23 13:27 Pulse Ox 93 L 11/26/23 13:27 FiO2 Intake & Output 11/25/23 11/26/23 11/26/23 18:59 06:59 18:59 Intake Total 770 780 Output Total 880 1300 600 Balance -110 -1300 180 Intake: Intake, IV Titration 770 Amount Dextrose 5% in Water 1, 720 000 ml @ 60 mls/hr IV . [id number] [facility] Rx#:[id number] cefTRIAXone 1 gm In 50 Sodium Chloride 0.9% 50 ml @ 100 mls/hr IVPB Q24HR [facility] Rx#:[id number] Oral 780 Output: Urine 880 1300 600 Other: Voiding Method Indwelling Catheter Indwelling Catheter - Exam Patient is slightly groggy. Complains of significant low back pain. - Labs CBC & Chem 7: 11/26/23 07:28 11/26/23 07:28 Labs: Abnormal Lab Results - Last 24 Hours (Table) 11/26/23 11/26/23 Range/Units 07:28 07:28 WBC 14.34 H (4.50-10.00) X 10*3/uL RBC 3.72 L (4.40-5.60) X 10*6/uL Hgb 10.5 L (13.0-17.0) g/dL Hct 33.5 L (39.6-50.0) % MCHC 31.3 L (32.0-37.0) g/dL Immature Gran # 0.12 H (0.00-0.04) X 10*3/uL Neutrophils # 13.23 H (1.80-7.70) X 10*3/uL Lymphocytes # 0.84 L (0.90-5.00) X 10*3/uL Monocytes # 0.12 L (0.20-1.00) X 10*3/uL Eosinophils # 0.01 L (0.04-0.35) X 10*3/uL Carbon Dioxide 20.4 L (21.6-31.8) mmol/L Anion Gap 15.60 H (4.00-12.00) mmol/L BUN/Creatinine Ratio 10.11 L (12.00-20.00) Ratio Glucose 183 H (70-110) mg/dL Assessment and Plan Assessment: * Frequent falls, likely multifactorial, as mentioned below. * History of multiple sclerosis, with chronic right foot drop. Rule out MS exacerbation. * Disability, due to MS. * Chronic low back pain * Vitamin B12 deficiency * Possible UTI * Acute kidney injury, improving * Possible bladder mass, urology following. * Ileus, with fecal retention, surgery following Plan: * Patient has longstanding history of multiple sclerosis, stays mostly in the wheelchair. His examination revealed significant asymmetric weakness of the upper and lower extremities, with prominent right foot drop. Patient could not tell if he has any new weakness or not. I do not have any previous docume nted neurological examination to compare with. It is unclear if patient has any MS exacerbation, or some other mechanical issues, or metabolic problems leading to new weakness, if at all. * B12 207, methylmalonic acid 3.13 folate 10.0, TSH 1.77. RPR nonreactive. B6 pending. Patient has significant B12 deficiency. Patient will be started on vitamin B12 injection 1000 mcg IM daily for 3 days, then monthly injections. * Empirically we will give Solu-Medrol 1 g IVPB daily for 3 days for possible MS exacerbation. * Patient complaining of severe low back pain. We will check MRI of the lumbar spine and cervical spines. * PT OT. * Other management as per IM and other specialties. * Neurology will follow.
--- NOTE | 2023-11-27 12:11 | P.PN ---
Subjective patient is seen for follow-up for acute kidney injury. Renal function has improved. status post D5W. Serum sodium down to 139 No significant complaints. Objective - Vital Signs Vital signs: Vital Signs Temp 98.3 F 11/27/23 07:48 Pulse 89 11/27/23 07:48 Resp 17 11/27/23 07:48 BP 165/88 11/27/23 07:48 Pulse Ox 92 L 11/27/23 07:48 FiO2 Intake & Output 11/26/23 11/27/23 11/27/23 18:59 06:59 18:59 Intake Total 780 Output Total 600 400 Balance 180 -400 Weight 86.183 kg Intake: Oral 780 Output: Urine 600 400 Other: Voiding Method Indwelling Catheter Indwelling Catheter - Exam patient is awake, comfortable, no acute distress Examination of the heart S1 and S2 Examination of the lungs bilateral breath sounds are heard examination of the abdomen shows it is soft and nontender Examination of lower extremities shows no significant edema [employer] exam grossly intact - Labs CBC & Chem 7: 11/26/23 07:28 11/26/23 07:28 Labs: Abnormal Lab Results - Last 24 Hours (Table) 11/24/23 Range/Units 18:41 Methylmalonic Acid 3.13 H (<0.40) umol/L Microbiology - Last 24 Hours (Table) 11/21/23 09:52 Blood Culture - Final Blood 11/21/23 10:07 Blood Culture - Final Blood Assessment and Plan Assessment: 1. Acute kidney injury secondary to vasomotor nephropathy from hypovolemia. Creatinine 1.9 upon initial presentation in [facility] and down to 0.9. UA with trace protein and suggestive of UTI. No hydronephrosis noted on kidney ultrasound. 2. Bladder mass noted on kidney ultrasound. Urology following. Will need cystoscopy in near future. 3. Constipation and possible ileus being followed by surgery. On full liquid diet. 4. History of MS with concern for exacerbation. Maintained on steroids. 5. Hypernatremia from lack of oral water intake. improved Plan: Repeat sodium in a.m. Continue to encourage increase free water intake.
[2023-11-27] MEDS: ALPRAZolam 0.25 MG TAB PO PRN (13:21)
--- NOTE | 2023-11-27 14:23 | MR ---
EXAMINATION TYPE: MR lumbar spine wo con DATE OF EXAM: 11/27/2023 COMPARISON: None HISTORY: Neck pain, back pain, MS, asymmetric weakness. CONTRAST: 0 mL intravenous Gadavist. TECHNIQUE: Multiplanar, multisequence images of the lumbar spine were acquired. FINDINGS: There is diffuse loss of disc height throughout the lumbar spine. Disc desiccation is present. Verteb ral body alignment is preserved. Susceptibility artifact from fixation L3-L5 is present. This limits the examination including portions which are nondiagnostic. Some facet hypertrophy is present L2-3 with mild posterior lateral thecal sac compression. No stenosi s is evident. Spinal canal stenosis is not identified. Foramen as visualized appear patent. These are more limited. IMPRESSION: 1. Somewhat limited examination post lumbar fixation. 2. Degenerative disc changes. 3. Mild facet hypertrophy L2-3 with posterior thecal sac compression. No stenosis present.
--- NOTE | 2023-11-27 15:46 | MR ---
EXAMINATION TYPE: MR cervical spine wo/w con DATE OF EXAM: 11/27/2023 2:44 PM CLINICAL INDICATION:Male, 68 years old with history of Neck pain, back pain, MS, asymmetric weakness; PHH, Neck pain, back pain, MS, asymmetric weakness. COMPARISON: None. TECHNIQUE: Multi planar, multi sequence imaging was performed utilizing: T1-weighted, T2-weighted, an d turbo inversion recovery imaging of the cervical spine. IV Contrast: 8.5 cc Gadavist (none if empty) FINDINGS: Alignment: The cervical vertebral bodies have preserved heights. Alignment is within normal limits gi jam patient positioning. Bones: Multilevel degeneration changes throughout the spine with disc space narrowing osteophyte form ation and facet and uncovertebral joint arthropathy. No abnormal bone marrow signal. Cord: The spinal cord is unremarkable with regards to their signal intensity and morphology. Discs: Intervertebral disc signal is maintained. C2-C3: No significant disc pathology. The spinal canal is patent. Bilateral facet and uncovertebral joint arthropathy are present with mild to moderate bilateral neural foraminal stenosis. C3-C4: A disc osteophyte complex is present with mild to moderate spinal canal stenosis. Bilateral f acet and uncovertebral joint arthropathy are present with moderate to severe left and mild to moderat e right neural foraminal stenosis. C4-C5: A disc osteophyte complex is present with moderate to severe spinal canal stenosis. Bilateral facet and uncovertebral joint arthropathy are present with moderate to severe bilateral neural mayito inal stenosis. C5-C6: A disc osteophyte complex is present with mild spinal canal stenosis. Bilateral facet and unc overtebral joint arthropathy are present with moderate to severe right and moderate left neural mayito inal stenosis. C6-C7: A disc osteophyte complex is present with mild spinal canal stenosis. Bilateral facet and unc overtebral joint arthropathy are present with severe left and moderate to severe right neural foramin al stenosis. C7-T1: No significant disc pathology. The spinal canal is patent. No neural foraminal stenosis. Other: None. IMPRESSION: 1. No evidence for abnormal enhancement. Spinal cord signal is relatively maintained without evidenc e for demyelination. 2. C4-C5 moderate to severe spinal canal stenosis secondary disc bulge and facet joint arthropathy. 3. Multilevel disc degeneration changes with varying degrees of neural foraminal stenosis as describ ed above.
[2023-11-28 02:56] VITALS: TEMP 98.3
--- NOTE | 2023-11-28 03:20 | P.PN ---
Subjective Progress Note Date: 11/27/23 This is a 68-year-old male who was recently admitted with acute urinary tract infection with possible bladder mass being followed by multiple medical consultations. Patient with significant weakness planning on going to rehab. Neurology following with concerns of possible MS exacerbation with significant symptoms and lower extremity weakness is being started on high-dose steroids. Nephrology following as well for acute kidney injury and hypernatremia which is improving and patient was continued on D5 which is being discontinued. Continues to report low back pain 11/27/2023 Patient is seen and evaluated in follow-up today reports continued back pain but reports is chronic. Patient scheduled to undergo MRI of the cervical and lumbar spine today with neurology following. Patient is continued on IV steroids and will continue for 3-day course. Will await MRI report and discuss further with neurology regarding discharge planning. Patient continues with indwelling Odell catheter and will continue and have urology follow-up outpatient. Plan is for ECF on discharge for continued strength and mobility. Patient is afebrile denies chest pain or shortness of breath. No reported nausea or vomiting and patient has been tolerating diet. Review of systems: Constitutional: No reports of fatigue, fever, or chills Cardiovascular: No reports of chest pain or palpitations Respiratory: No reports of shortness of breath or cough GI: No reports of nausea, no reports of vomiting, reports passing gas : No reports of dysuria or retention, currently continues with indwelling Odell catheter Neurovascular: reports of generalized weakness, continued lower back pain All medications have been reviewed PHYSICAL EXAMINATION: GENERAL: The patient is alert and oriented x3, Well developed, well nourished. elderly appearing. HEENT: Pupils are round and equally reacting to light. EOMI. no scleral icterus. No conjunctival pallor. Normocephalic, atraumatic. No pharyngeal erythema. No th yromegaly. CARDIOVASCULAR: S1 and S2 muffled PULMONARY: diminished breath sounds bilaterally with no wheezing or rhonchi noted. ABDOMEN: soft. Nontender on exam. obese. non-distended, normoactive bowel sounds. No palpable organomegaly. MUSCULOSKELETAL: No joint swelling or deformity. EXTREMITIES: No cyanosis, clubbing, or pedal edema. NEUROLOGICAL: Gross neurological examination did not reveal any focal deficits. Diffuse weakness SKIN: No rashes. Assessment: Acute urinary tract infection with possible bladder mass, present on admission Urinary retention requiring indwelling Odell catheter Severe constipation and fecal retention, improving Severe weakness and gait dysfunction History of multiple sclerosis with concerns of possible MS exacerbation Chronic back pain History of BPH GI prophylaxis DVT prophylaxis no code Plan: Recommend to continue with current medications and management with multiple medical consultations following. Patient was evaluated by urology recommending outpatient follow-up with his urologist Dr. Salinas on discharge. Continue antibiotics with concerns of urinary tract infection. Continue with indwelling Odell catheter until follow-up with urology Neurology following has ordered MRI of cervical and lumbar spine which is scheduled for today. Patient is continued on high-dose IV steroids for 3-day course per neurology Patient continues to have some discomfort with general surgery following, recommend continuing with bowel regimen Encouraged oral intake Case management following as patient will be going to [facility] for continued strength and mobility although requires 3 night hospitalization according to Medicare guidelines. Due to multiple complex medical issues, prognosis is guarded Will discuss further with neurology with possible discharge planning in the next 24 to 48 hours The impression and plan of care has been dictated by Tracy Gutiérrez, nurse practitioner as directed. Dr. Daljit MD I have performed a history and examination and MDM of this patient, discussed the same with the dictator, and agree with the dictator's assessment and plan as written ,documented as a scribe. Based on total visit time, I have performed more than 50% of the visit. Any additional findings or plans will be noted. Objective - Vital Signs Vital signs: Vital Signs Temp 98.3 F 11/27/23 07:48 Pulse 89 11/27/23 07:48 Resp 17 11/27/23 07:48 BP 165/88 11/27/23 07:48 Pulse Ox 92 L 11/27/23 07:48 FiO2 Intake & Output 11/26/23 11/27/23 11/27/23 18:59 06:59 18:59 Intake Total 780 Output Total 600 400 Balance 180 -400 Intake: Oral 780 Output: Urine 600 400 Other: Voiding Method Indwelling Catheter - Labs CBC & Chem 7: 11/26/23 07:28 11/26/23 07:28 Labs: Abnormal Lab Results - Last 24 Hours (Table) 11/24/23 11/26/23 11/26/23 Range/Units 18:41 07:28 07:28 WBC 14.34 H (4.50-10.00) X 10*3/uL RBC 3.72 L (4.40-5.60) X 10*6/uL Hgb 10.5 L (13.0-17.0) g/dL Hct 33.5 L (39.6-50.0) % MCHC 31.3 L (32.0-37.0) g/dL Immature Gran # 0.12 H (0.00-0.04) X 10*3/uL Neutrophils # 13.23 H (1.80-7.70) X 10*3/uL Lymphocytes # 0.84 L (0.90-5.00) X 10*3/uL Monocytes # 0.12 L (0.20-1.00) X 10*3/uL Eosinophils # 0.01 L (0.04-0.35) X 10*3/uL Carbon Dioxide 20.4 L (21.6-31.8) mmol/L Anion Gap 15.60 H (4.00-12.00) mmol/L BUN/Creatinine Ratio 10.11 L (12.00-20.00) Ratio Glucose 183 H (70-110) mg/dL Methylmalonic Acid 3.13 H (<0.40) umol/L Microbiology - Last 24 Hours (Table) 11/21/23 09:52 Blood Culture - Final Blood 11/21/23 10:07 Blood Culture - Final Blood
[2023-11-28 08:29] VITALS: BP 127/73; PULSE 68; RESP 20
--- NOTE | 2023-11-28 11:58 | P.PN ---
Subjective Progress Note Date: 11/27/23 Patient was seen for a follow-up. Patient appears better today. Patient states he feels "all right". No new concerns. Objective - Vital Signs Vital signs: Vital Signs Temp 97.8 F 11/27/23 13:52 Pulse 94 11/27/23 13:52 Resp 17 11/27/23 13:52 BP 167/85 11/27/23 13:52 Pulse Ox 92 L 11/27/23 13:52 FiO2 Intake & Output 11/26/23 11/27/23 11/27/23 18:59 06:59 18:59 Intake Total 780 540 Output Total 600 400 400 Balance 180 -400 140 Weight 86.183 kg Intake: Oral 780 540 Output: Urine 600 400 400 Other: Voiding Method Indwelling Catheter Indwelling Catheter - Exam Patient is much more alert and awake in no distress. Examination is unchanged. - Labs CBC & Chem 7: 11/26/23 07:28 11/26/23 07:28 Labs: Abnormal Lab Results - Last 24 Hours (Table) 11/24/23 Range/Units 18:41 Methylmalonic Acid 3.13 H (<0.40) umol/L Microbiology - Last 24 Hours (Table) 11/21/23 09:52 Blood Culture - Final Blood 11/21/23 10:07 Blood Culture - Final Blood Assessment and Plan Assessment: * Frequent falls, likely multifactorial, as mentioned below. * History of multiple sclerosis, with chronic right foot drop. Rule out MS exacerbation. * Disability, due to MS. * Chronic low back pain * Vitamin B12 deficiency * Vitamin B6 deficiency * Possible UTI * Acute kidney injury, improving * Possible bladder mass, urology following. * Ileus, with fecal retention, surgery following Plan: * Patient has longstanding history of multiple sclerosis, stays mostly in the wheelchair. His examination revealed significant asymmetric weakness of the upper and lower extremities, with prominent right foot drop. Patient could not tell if he has any new weakness or not. I do not have any previous documented neurological examination to compare with. It is unclear if patient has any MS exacerbation, or some other mechanical issues, or metabolic problems leading to new weakness, if at all. * B12 207, methylmalonic acid 3.13 folate 10.0, TSH 1.77. RPR nonreactive. B6 level low 4 (5-50). We will start B6 replacement with pyridoxine 50 mg daily. Patient has significant B12 deficiency. Patient will be started on vitamin B12 injection 1000 mcg IM daily for 3 days, then monthly injections. * Patient has completed Solu-Medrol 1 g IVPB daily for 3 days for possible MS exacerbation. * MRI cervical spine revealed no evidence for abnormal enhancement. Spinal cord signal is relatively maintained without evidence for demyelination. C4-C5 moderate to severe spinal canal stenosis, secondary to disc bulge and facet joint arthropathy. Multilevel disc degeneration changes with varying degrees of neural foraminal stenosis. I personally reviewed MRI, and agree with the findings. * MRI lumbar spine revealed somewhat limited examination post lumbar fixation. Degenerative disc changes. Mild facet hypertrophy L2-3 with posterior thecal sac compression. No stenosis present. I personally reviewed MRI, and is technically very limited because of hardware artifact. * Orthopedic surgery already on board. * PT OT. * Other management as per IM and other specialties. * Neurologically clear, if cleared by orthopedic surgery. May follow-up with neurologist outpatient.
[2023-11-28] MEDS: PYRIDOXINE 50 MG TAB PO SCH (13:06)
--- NOTE | 2023-11-28 13:54 | P.DS ---
Providers Date of admission: 11/24/23 09:34 Expected date of discharge: 11/28/23 Attending physician: Cirilo Justice Consults: 11/21/23 12:24 Consult Physician Routine Consulting Provider: Arie Machado Consult Reason/Comments: Possible CKD Do you want consulting provider notified?: Yes 11/21/23 14:57 Consult Physician Routine Consulting Provider: Evgeny Merino Consult Reason/Comments: lumbar back pain Do you want consulting provider notified?: Yes 11/22/23 10:12 Consult Physician Routine Consulting Provider: Júnior Herrera Consult Reason/Comments: bladder mass Do you want consulting provider notified?: Yes 11/24/23 11:27 Consult Physician Routine Consulting Provider: Suresh Stevens Consult Reason/Comments: ms exacerbation?? Do you want consulting provider notified?: Yes Primary care physician: Kang Santacruz [facility] Course: Final diagnosis Acute urinary tract infection with possible bladder mass, present on admission Urinary retention requiring indwelling Odell catheter Severe constipation and fecal retention, improving Severe weakness and gait dysfunction History of multiple sclerosis with concerns of possible MS exacerbation Chronic back pain Multilevel disc degenerative disease with C4-C5 moderate to severe spinal canal stenosis with disc bulge and facet joint arthropathy History of BPH GI prophylaxis DVT prophylaxis no code Discharge disposition Patient is being discharged in a stable condition with guarded prognosis to [facility]. Patient will follow-up with Dr. Santacruz in the outpatient setting upon discharge. Patient is to continue with antibiotics for the next 5 days and close outpatient follow-up with his urologist as well as neurology and orthopedics outpatient as scheduled. Total time taken is greater than 35 mi nutes. Hospital course This is a 68-year-old male who was recently admitted with with acute urinary tract infection with urinary retention requiring indwelling Odell catheter with concerns of possible bladder mass. Patient with noted hematuria which has resolved and evaluated by urology recommending continued Odell and outpatient follow-up with primary urologist. Patient with concerns of urinary tract infection showing improvements on ceftriaxone and will continue oral Ceftin to complete the course. Patient also evaluated by neurology along with orthopedics recommending outpatient follow-up. Patient was continued on a 3-day IV dose steroids with concerns of possible MS exacerbation. Patient will continue on bowel regimen as patient is taking pain medications and has history of chronic constipation. Patient will be going to [facility] for continued PT/OT therapy. Patient to follow-up with primary care provider on discharge. Please refer to other consultation notes for further HPI. Patient will need outpatient follow-up with orthopedics. Currently no reports of chest pain, shortness of breath, or palpitations. Patient is afebrile. No reports of nausea or vomiting and patient is tolerating diet. Patient will be going to [place] [facility] today. Guarded prognosis and high risk for readmissions. Physical exam: Gen: This is a 68-year-old male who is awake, alert and oriented x 3, well- developed, well-nourished, elderly appearing, obese HEENT: Head is atraumatic, normocephalic. Pupils equal, round. Sclerae is anicteric. NECK: Supple. No JVD. No lymphadenopathy. No thyromegaly. LUNGS: Diminished breath sounds bilaterally otherwise clear to auscultation. No wheezes or rhonchi. No intercostal retractions. HEART: S1, S2 are muffled ABDOMEN: Soft. Obese. Bowel sounds are present. No masses. No tenderness. EXTREMITIES: No pedal edema. No calf tenderness. Mostly wheelchair-bound NEUROLOGICAL: Patient is awake, alert and oriented x3. Cranial nerves 2 through 12 are grossly intact. Diffusely weak Please refer to medication reconciliation sheet for a list of medications. The impression and plan of care has been dictated by Tracy Gutiérrez, Nurse Practitioner as directed. Dr. Daljit MD I have performed a history and examination and MDM of this patient, discussed the same with the dictator, and agree with the dictator's assessment and plan as written ,documented as a scribe. Based on total visit time, I have performed more than 50% of the visit. Patient Condition at Discharge: Fair Plan - Discharge Summary New Discharge Prescriptions: New Tamsulosin [Flomax] 0.4 mg PO PC-SUPPER cap Enoxaparin [Lovenox] 40 mg SQ DAILY each Melatonin 3 mg PO HS PRN tab PRN Reason: Insomnia HYDROcodone/APAP 5-325MG [[place] 5-325] 1 each PO Q6HR PRN #4 tab PRN Reason: Pain Pyridoxine [Vitamin B-6] 50 mg PO DAILY tab ALPRAZolam [Xanax] 0.25 mg PO Q6HR PRN #2 tab PRN Reason: Anxiety cefUROXime axetiL [Ceftin] 500 mg PO BID 5 Days #10 tab Lactulose [Cephulac] 20 gm PO DAILY PRN ml PRN Reason: Constipation Calcium Carbonate [Tums] 1,000 mg PO Q4HR PRN tab PRN Reason: Dyspepsia Acetaminophen Tab [Tylenol] 650 mg PO Q6HR PRN tab PRN Reason: Fever And/ Or Pain Cyanocobalamin [Vitamin B-12 Injection] 1,000 mcg IM QMONTHLY #1 ml Discharge Medication List ALPRAZolam [Xanax] 0.25 mg PO Q6HR PRN #2 tab 11/28/23 [Rx] Acetaminophen Tab [Tylenol] 650 mg PO Q6HR PRN tab 11/28/23 [Rx] Calcium Carbonate [Tums] 1,000 mg PO Q4HR PRN tab 11/28/23 [Rx] Cyanocobalamin [Vitamin B-12 Injection] 1,000 mcg IM QMONTHLY #1 ml 11/28/23 [Rx] Enoxaparin [Lovenox] 40 mg SQ DAILY each 11/28/23 [Rx] HYDROcodone/APAP 5-325MG [[place] 5-325] 1 each PO Q6HR PRN #4 tab 11/28/23 [Rx] Lactulose [Cephulac] 20 gm PO DAILY PRN ml 11/28/23 [Rx] Melatonin 3 mg PO HS PRN tab 11/28/23 [Rx] Pyridoxine [Vitamin B-6] 50 mg PO DAILY tab 11/28/23 [Rx] Tamsulosin [Flomax] 0.4 mg PO PC-SUPPER cap 11/28/23 [Rx] cefUROXime axetiL [Ceftin] 500 mg PO BID 5 Days #10 tab 11/28/23 [Rx] Follow up Appointment(s)/Referral(s): Kang Santacruz MD [Primary Care Provider] - 1-2 days Suzette Tierney NPC [Nurse Practitioner] - As Needed Patient Instructions/Handouts: Lumbar Spinal Stenosis (DC), Degenerative Disc Disease (DC) Activity/Diet/Wound Care/Special Instructions: Patient is going to [facility] bed Activity as tolerated Continue with antibiotics for 5 days Follow-up urology Dr. Salinas outpatient Continue indwelling Odell catheter until follow-up Follow-up with neurology outpatient Follow-up with orthopedics outpatient Discharge Disposition: TRANSFER TO SNF/F
== END 2023-11-28 14:35 | DRG 683 ==
LOC: EC 08:24 → SUPCPDRO 08:24 → 5NMEDONC 11:25 → OBSVTOIN 11:25 → INTOOBSV 11:25 → 5NMEDONC 11:53 → OBSVTOIN 11-24 09:34
PROVIDERS: ADMIT Hospitalist; ATTEND Hospitalist
DX: N17.0 Acute kidney failure with tubular necrosis (principal); E87.0 Hyperosmolality and hypernatremia; N39.0 Urinary tract infection, site not specified; K56.7 Ileus, unspecified; E86.0 Dehydration; R29.6 Repeated falls; M21.371 Foot drop, right foot; G35 Multiple sclerosis; N40.0 Benign prostatic hyperplasia without lower urinary tract symptoms; E53.1 Pyridoxine deficiency; E53.8 Deficiency of other specified B group vitamins; E86.1 Hypovolemia; G89.29 Other chronic pain; M41.9 Scoliosis, unspecified; D64.9 Anemia, unspecified; K56.41 Fecal impaction; M47.816 Spondylosis without myelopathy or radiculopathy, lumbar region; M48.02 Spinal stenosis, cervical region; M51.36 Other intervertebral disc degeneration, lumbar region; M85.80 Other specified disorders of bone density and structure, unspecified site; N26.1 Atrophy of kidney (terminal); N32.9 Bladder disorder, unspecified; W01.0XXA Fall on same level from slipping, tripping and stumbling without subsequent striking against object, initial encounter; Z87.891 Personal history of nicotine dependence; Y92.009 Unspecified place in unspecified non-institutional (private) residence as the place of occurrence of the external cause; Z79.52 Long term (current) use of systemic steroids; Z87.440 Personal history of urinary (tract) infections
CPT/HCPCS: 36415; 51798; 72100; 72148; 72156; 74018; 76770; 80048; 80053; 81001; 82607; 82746; 83605; 83735; 83921; 84207; 84443; 85025; 86780; 87040; 87086; 96361; 96372; 96374; 99285